=== PATIENT | male | born 1985 | race Caucasian/White ===

== ENCOUNTER 2021-02-24 02:13 | Inpatient (IN) | payer OTHER, MEDICAID, SELFPAY ==
[2021-02-24] VITALS (8 sets, daily range): BP systolic 94–123
[~2021-02-24] VITALS: Ht 165.1 cm; Wt 59.4 kg
[2021-02-24] MEDS ORDERED: PIPERACILLIN/TAZO 3.375 GM in NS 50 ML IV ONE (02:30)
[2021-02-24] MEDS ORDERED: NACL 0.9% 1,000 ML IV ONE ×2 (02:30→03:45)
[2021-02-24] MEDS ORDERED: PIPERACILLIN/TAZOBACTAM 3.375 GM/VIAL (ZOSYN) IV ONE (03:09)
[2021-02-24 03:21] LABS: BASOPHILS % (AUTO) 0.2 % (0.0-2.0); EOSINOPHILS # (AUTO) 0.1 K/uL (0.0-0.4); EOSINOPHILS % (AUTO) 1.8 % (0.0-4.0); HEMATOCRIT 42.1 % (36-54); HEMOGLOBIN 14.3 g/dL (14.0-18.0); LYMPHOCYTES # (AUTO) 2.5 K/uL (1.0-5.5); MEAN CORPUSCULAR HEMOGLOBIN 31 pg (27-31); MEAN CORPUSCULAR HGB CONC 34 % (32-36); MEAN CORPUSCULAR VOLUME 91 fL (79.0-98.0); MONOCYTES # (AUTO) 0.6 K/uL (0.0-1.0); MONOCYTES % (AUTO) 8.2 % (1.7-9.3); NEUTROPHILS % (AUTO) 55.8 % (40.0-70.0); PLATELET COUNT (AUTO) 268 K/uL (130-430); RED BLOOD CELL COUNT(AUTO) 4.62 MIL/uL (4.2-6.2); RED CELL DISTRIBUTION WIDTH 13.4 % (9.0-15.0); WHITE BLOOD COUNT (AUTO) 7.2 K/uL (4.8-10.8)
[2021-02-24] MEDS ORDERED: VANCOMYCIN HCL 1,000 MG in NS 250 ML IV ONE (03:30)
[2021-02-24] MEDS ORDERED: AZITHROMYCIN 500 MG in NS 250 ML IV ONE (03:30)
[2021-02-24] MEDS ORDERED: AZITHROMYCIN 500 MG/VIAL (ZITHROMAX) IV ONE (03:31)
[2021-02-24 03:41] LABS: INR 1.2 (0.80-1.20); PROTHROMBIN TIME 12.3 SECS (9.5-12.5)
[2021-02-24 03:42] LABS: POTASSIUM 3.9 mmol/L (3.5-5.1)
[2021-02-24 03:43] LABS: CALCIUM 8.4 mg/dL (8.4-11.0); CREATININE 0.32 mg/dL (0.55-1.30); TOTAL BILIRUBIN 0.3 mg/dL (0.0-1.0)
[2021-02-24 03:44] LABS: ALBUMIN 2.9 g/dL (3.4-4.8)
[2021-02-24] MEDS ORDERED: VANCOMYCIN HCL 1000 MG/VIAL IV ONE (04:01)
[2021-02-24 04:13] LABS: BILIRUBIN,URINE NEGATIVE (NEGATIVE); BLOOD, URINE NEGATIVE (NEGATIVE); COLOR,URINE YELLOW (YELLOW); GLUCOSE,URINE NEGATIVE (NEGATIVE); KETONES,URINE NEGATIVE (NEGATIVE); LEUKOCYTE ESTERASE ,URINE NEGATIVE (NEGATIVE); NITRITE, URINE NEGATIVE (NEGATIVE); PH,URINE 7.5 (5.0-8.0); PROTEIN URINE NEGATIVE (NEGATIVE); UROBILINOGEN,URINE 0.2 (0.2-1.0)
[2021-02-24] MEDS ORDERED: IPRATROPIUM/ALBUTEROL SULFATE 3 ML AMPUL.NEB (DUONEB) INH ONE (04:15)
[2021-02-24 04:19] LABS: CLARITY/URINE HAZY (CLEAR)
[2021-02-24 04:21] LABS: RBC,URINE 0-3 /HPF (0-3); WBC,URINE NONE SEEN /HPF (0-3)
[2021-02-24 04:22] LABS: BACTERIA,URINE None Seen /HPF (None Seen); URINE AMORPHOUS PHOSPHATES 2+ /HPF (None Seen)
[2021-02-24] MEDS ORDERED: D5/0.45 NS 1,000 ML IV SCH (05:15)
[2021-02-24] MEDS ORDERED: [UNRECOGNIZED DRUG - OTHER] TD (09:48)
[2021-02-24] MEDS ORDERED: FAMO20TA8 GT (09:48)
[2021-02-24] MEDS ORDERED: PEG15DRO5 EACH EYE (09:48)
[2021-02-24] MEDS ORDERED: DIASTAT ACDL RC (09:48)
[2021-02-24] MEDS ORDERED: DIGO250T GT (09:48)
[2021-02-24] MEDS ORDERED: CLORAZ DIPOT GT ×2 (09:48→14:06)
[2021-02-24] MEDS ORDERED: GLYCOPYRROL GT (09:48)
[2021-02-24] MEDS ORDERED: THERA-M GT (09:48)
[2021-02-24] MEDS ORDERED: IBUP-1968 GT (09:48)
[2021-02-24] MEDS ORDERED: PRED1TAB GT (09:48)
[2021-02-24] MEDS ORDERED: MI-ACID GAS GT (09:48)
[2021-02-24] MEDS ORDERED: DILT30TA36 PO (09:48)
[2021-02-24] MEDS ORDERED: GNP CLEARLAX GT (09:48)
[2021-02-24] MEDS ORDERED: LACT10SO6 GT (09:48)
[2021-02-24] MEDS ORDERED: BACL10TA GT (09:48)
[2021-02-24] MEDS ORDERED: BUDE0.5A INH (09:48)
[2021-02-24] MEDS ORDERED: CRAN450T9 GT (09:48)
[2021-02-24] MEDS ORDERED: IPRA3AMP9 INH (09:48)
[2021-02-24] MEDS ORDERED: PHEN20EL5 GT (09:48)
[2021-02-24] MEDS ORDERED: FIBER CAP GT (09:48)
[2021-02-24] MEDS ORDERED: TOPI200T GT (09:48)
[2021-02-24] MEDS ORDERED: BIOT1CAP3 GT (09:48)
[2021-02-24] MEDS ORDERED: LEVETIRACETA GT (09:48)
[2021-02-24] MEDS ORDERED: MONT10TA22 GT (09:48)
[2021-02-24] MEDS ORDERED: [UNRECOGNIZED DRUG - OTHER] RC (09:48)
[2021-02-24] MEDS ORDERED: POT CHLORIDE 10% GT (09:48)
[2021-02-24] MEDS ORDERED: [UNRECOGNIZED DRUG - OTHER] GT (09:48)
[2021-02-24] MEDS ORDERED: ZINC220T3 GT (09:48)
[2021-02-24] MEDS ORDERED: ASCO500T20 GT (09:48)
[2021-02-24] MEDS ORDERED: COLL100 GT (09:48)
[2021-02-24] MEDS ORDERED: VIT D3 GT (09:48)
[2021-02-24] MEDS ORDERED: LACT1CAP61 GT (09:48)
[2021-02-24] MEDS ORDERED: LORazepam 2 MG/ML VIAL IVP PRN ×2 (12:15→20:00)
[2021-02-24] MEDS ORDERED: HYDROcodone/ACETAMIN 5-325 MG TAB (NORCO/ VICODIN) GT PRN (12:15)
[2021-02-24] MEDS ORDERED: IBUPROFEN 400 MG TABLET GT PRN (12:15)
[2021-02-24] MEDS ORDERED: NALOXONE HCL 0.4 MG/ML AMP (NARCAN) IVP PRN ×2 (12:15)
[2021-02-24] MEDS ORDERED: ACETAMINOPHEN 650 MG RC SCH (12:15)
[2021-02-24] MEDS ORDERED: HYDROcodone/ACETAMIN 10-325 MG TAB GT PRN (12:15)
[2021-02-24] MEDS ORDERED: DIAZEPAM 10 MG RC SCH (12:15)
[2021-02-24] MEDS: D5/0.45 NS 1,000 ML IV SCH ×2 (12:15→20:24)
[2021-02-24] MEDS: PIPERACILLIN/TAZO 3.375/DEX-IS 50 ML IV SCH ×3 (12:38→23:59)
[2021-02-24] MEDS: PEG 400/HYPROMELLOSE/GLYCERIN 15 ML DROPS EACH EYE SCH ×3 (13:00→22:36)
[2021-02-24] MEDS ORDERED: COMMUNICATION ORDER XX ONE (14:15)
[2021-02-24] MEDS: LEVOFLOXACIN IN DEXTROSE 5 % 100 ML IV SCH (14:38)
[2021-02-24] MEDS: SIMETHICONE 80 MG TAB.CHEW GT SCH ×2 (14:42→22:35)
[2021-02-24] MEDS: CLORAZEPATE DIPOTASSIUM 3.75 MG GT SCH ×2 (15:12→20:06)
[2021-02-24] MEDS: GLYCOPYRROLATE 1 MG TABLET GT SCH ×2 (17:27→23:59)
[2021-02-24] MEDS: predniSONE 5 MG TABLET GT SCH (17:27)
[2021-02-24] MEDS: BUDESONIDE 0.5 MG/2 ML AMPUL.NEB INH SCH (20:36)
[2021-02-24] MEDS ORDERED: LACTOBACILLUS ACIDOPHILUS 0.5 MG GT SCH (21:00)
[2021-02-24] MEDS: LevETIRAcetam 500 MG/5 ML UDC ORAL LIQUID GT SCH (22:29)
[2021-02-24] MEDS: DOCUSATE SODIUM 100 MG/10 ML UDC GT SCH (22:31)
[2021-02-24] MEDS: TOPIRAMATE 100 MG TABLET(Topamax) GT SCH (22:33)
[2021-02-24] MEDS: LACTOBACILLUS RHAMNOSUS GG 1 CAP CAPSULE GT SCH (22:34)
[2021-02-24] MEDS: ASCORBIC ACID 500 MG TABLET GT SCH (22:34)
[2021-02-24] MEDS: DILTIAZEM HCL 30 MG TABLET PO SCH (22:34)
[2021-02-24] MEDS: MONTELUKAST 10 MG TABLET GT SCH (22:34)
[2021-02-24] MEDS: POLYETHYLENE GLYCOL 3350, 17 GM/ POWD.PACK GT SCH (22:35)
[2021-02-24] MEDS: PHENobarbital 30 MG TABLET GT SCH (22:35)
[2021-02-24] MEDS: FAMOTIDINE 20 MG TABLET GT SCH (22:35)
[2021-02-25 00:34] VITALS: BP_SYST 147
[2021-02-25] MEDS: CLORAZEPATE DIPOTASSIUM 3.75 MG GT SCH ×4 (02:33→23:05)
[2021-02-25] MEDS: GLYCOPYRROLATE 1 MG TABLET GT SCH ×3 (05:41→17:49)
[2021-02-25] MEDS: PIPERACILLIN/TAZO 3.375/DEX-IS 50 ML IV SCH ×3 (05:41→17:49)
[2021-02-25 06:57] LABS: BASOPHILS % (AUTO) 0.5 % (0.0-2.0); EOSINOPHILS # (AUTO) 0.2 K/uL (0.0-0.4); EOSINOPHILS % (AUTO) 3.3 % (0.0-4.0); HEMATOCRIT 39.4 % (36-54); HEMOGLOBIN 13.2 g/dL (14.0-18.0); LYMPHOCYTES # (AUTO) 0.9 K/uL (1.0-5.5); LYMPHOCYTES % (AUTO) 14.5 % (20.5-51.5); MEAN CORPUSCULAR HEMOGLOBIN 31 pg (27-31); MEAN CORPUSCULAR HGB CONC 34 % (32-36); MEAN CORPUSCULAR VOLUME 93 fL (79.0-98.0); MONOCYTES # (AUTO) 1.1 K/uL (0.0-1.0); MONOCYTES % (AUTO) 17.8 % (1.7-9.3); NEUTROPHILS % (AUTO) 63.9 % (40.0-70.0); PLATELET COUNT (AUTO) 192 K/uL (130-430); RED BLOOD CELL COUNT(AUTO) 4.24 MIL/uL (4.2-6.2); RED CELL DISTRIBUTION WIDTH 13.7 % (9.0-15.0); WHITE BLOOD COUNT (AUTO) 6.2 K/uL (4.8-10.8)
[2021-02-25 08:00] VITALS: BP_SYST 107
[2021-02-25] MEDS: BUDESONIDE 0.5 MG/2 ML AMPUL.NEB INH SCH ×2 (08:15→19:52)
[2021-02-25] MEDS: IPRATROPIUM/ALBUTEROL SULFATE 3 ML AMPUL.NEB (DUONEB) INH PRN (08:39)
[2021-02-25 08:42] LABS: ALBUMIN 2.4 g/dL (3.4-4.8); CALCIUM 7.8 mg/dL (8.4-11.0); CREATININE 0.31 mg/dL (0.55-1.30); TOTAL BILIRUBIN 0.4 mg/dL (0.0-1.0)
[2021-02-25] MEDS ORDERED: NON-FORMULARY MEDICATION (Cranberry Fruit (Cranberry) 425 MG) GT SCH (09:00)
[2021-02-25] MEDS ORDERED: NON-FORMULARY MEDICATION (Biotin 1,000 MCG) GT SCH (09:00)
[2021-02-25] MEDS ORDERED: FIBER GT SCH (09:00)
[2021-02-25 09:19] LABS: POTASSIUM 2.8 mmol/L (3.5-5.1)
[2021-02-25] MEDS: D5/0.45 NS 1,000 ML IV SCH (09:31)
[2021-02-25] MEDS: LACTULOSE 20 GM/30 ML UDC GT SCH (09:31)
[2021-02-25] MEDS: DOCUSATE SODIUM 100 MG/10 ML UDC GT SCH ×2 (09:32→23:03)
[2021-02-25] MEDS: CALCIUM CARBONATE 500 MG/ TAB.CHEW GT SCH (09:32)
[2021-02-25] MEDS: POTASSIUM CHLORIDE 20 MEQ/PKT PACKET GT SCH (09:33)
[2021-02-25] MEDS: SIMETHICONE 80 MG TAB.CHEW GT SCH ×3 (09:33→23:06)
[2021-02-25] MEDS: ASCORBIC ACID 500 MG TABLET GT SCH ×2 (09:33→23:06)
[2021-02-25] MEDS: LACTOBACILLUS RHAMNOSUS GG 1 CAP CAPSULE GT SCH ×2 (09:33→23:06)
[2021-02-25] MEDS: TOPIRAMATE 100 MG TABLET(Topamax) GT SCH ×2 (09:33→23:10)
[2021-02-25] MEDS: MULTIVITS,CA,MINERALS/IRON/FA 1 TABLET GT SCH (09:33)
[2021-02-25] MEDS: POLYETHYLENE GLYCOL 3350, 17 GM/ POWD.PACK GT SCH ×2 (09:34→23:04)
[2021-02-25] MEDS: PHENobarbital 30 MG TABLET GT SCH ×2 (09:34→23:04)
[2021-02-25] MEDS: DIGOXIN 0.25 MG TABLET GT SCH (09:34)
[2021-02-25] MEDS: CHOLECALCIFEROL (VITAMIN D3) 2,000 UNIT TABLET GT SCH (09:34)
[2021-02-25] MEDS: PEG 400/HYPROMELLOSE/GLYCERIN 15 ML DROPS EACH EYE SCH ×4 (09:54→23:08)
[2021-02-25] MEDS: SCOPOLAMINE HYDROBROMIDE 1 MG PATCH .72 H (TRANSDERM-SCOP) TD SCH (10:15)
[2021-02-25 10:16] LABS: C-REACTIVE PROTEIN QUANT 8.2 mg/dL (0-0.5)
[2021-02-25] MEDS: LevETIRAcetam 500 MG/5 ML UDC ORAL LIQUID GT SCH ×2 (10:16→23:03)
[2021-02-25 10:17] LABS: ERYTHROCYTE SEDIMENTATION RATE 5 MM/HR (0-15)
[2021-02-25 11:23] VITALS: BP_SYST 80
[2021-02-25] MEDS ORDERED: POTASSIUM CHLORIDE 40 MEQ in NS 250 ML IV ONE (13:15)
[2021-02-25] MEDS: LEVOFLOXACIN IN DEXTROSE 5 % 100 ML IV SCH (14:19)
[2021-02-25 15:21] VITALS: BP_SYST 131
[2021-02-25] MEDS: predniSONE 5 MG TABLET GT SCH (17:49)
[2021-02-25 20:00] VITALS: BP_SYST 142
[2021-02-25] MEDS: FAMOTIDINE 20 MG TABLET GT SCH (23:04)
[2021-02-25] MEDS: DILTIAZEM HCL 30 MG TABLET PO SCH (23:06)
[2021-02-25] MEDS: MONTELUKAST 10 MG TABLET GT SCH (23:07)
[2021-02-26] VITALS: BP_SYST 108
[2021-02-26] MEDS: CLORAZEPATE DIPOTASSIUM 3.75 MG GT SCH ×4 (01:17→22:49)
[2021-02-26] MEDS: GLYCOPYRROLATE 1 MG TABLET GT SCH ×4 (01:17→17:11)
[2021-02-26] MEDS: PIPERACILLIN/TAZO 3.375/DEX-IS 50 ML IV SCH ×3 (01:17→11:14)
[2021-02-26] MEDS: D5/0.45 NS 1,000 ML IV SCH ×2 (06:00→17:18)
[2021-02-26 06:44] LABS: BASOPHILS % (AUTO) 0.4 % (0.0-2.0); EOSINOPHILS # (AUTO) 0.3 K/uL (0.0-0.4); EOSINOPHILS % (AUTO) 4.6 % (0.0-4.0); HEMATOCRIT 40.6 % (36-54); LYMPHOCYTES # (AUTO) 1.2 K/uL (1.0-5.5); LYMPHOCYTES % (AUTO) 20.8 % (20.5-51.5); MEAN CORPUSCULAR HEMOGLOBIN 31 pg (27-31); MEAN CORPUSCULAR HGB CONC 34 % (32-36); MEAN CORPUSCULAR VOLUME 91 fL (79.0-98.0); MONOCYTES % (AUTO) 16.1 % (1.7-9.3); NEUTROPHILS # (AUTO) 3.5 K/uL (1.8-7.7); NEUTROPHILS % (AUTO) 58.1 % (40.0-70.0); PLATELET COUNT (AUTO) 236 K/uL (130-430); RED BLOOD CELL COUNT(AUTO) 4.47 MIL/uL (4.2-6.2); RED CELL DISTRIBUTION WIDTH 13.3 % (9.0-15.0)
[2021-02-26 07:44] LABS: CALCIUM 8.6 mg/dL (8.4-11.0); CREATININE 0.31 mg/dL (0.55-1.30); POTASSIUM 3.5 mmol/L (3.5-5.1)
[2021-02-26 07:52] VITALS: BP_SYST 92
[2021-02-26] MEDS: BUDESONIDE 0.5 MG/2 ML AMPUL.NEB INH SCH ×2 (08:02→20:56)
[2021-02-26] MEDS: POLYETHYLENE GLYCOL 3350, 17 GM/ POWD.PACK GT SCH ×2 (08:34→22:49)
[2021-02-26] MEDS: DOCUSATE SODIUM 100 MG/10 ML UDC GT SCH ×2 (08:34→22:48)
[2021-02-26] MEDS: SIMETHICONE 80 MG TAB.CHEW GT SCH ×3 (08:34→23:00)
[2021-02-26] MEDS: LACTULOSE 20 GM/30 ML UDC GT SCH (08:34)
[2021-02-26] MEDS: ASCORBIC ACID 500 MG TABLET GT SCH ×2 (08:35→22:51)
[2021-02-26] MEDS: DIGOXIN 0.25 MG TABLET GT SCH (08:35)
[2021-02-26] MEDS: LACTOBACILLUS RHAMNOSUS GG 1 CAP CAPSULE GT SCH ×2 (08:35→22:50)
[2021-02-26] MEDS: PHENobarbital 30 MG TABLET GT SCH ×2 (08:35→22:50)
[2021-02-26] MEDS: CALCIUM CARBONATE 500 MG/ TAB.CHEW GT SCH (08:35)
[2021-02-26] MEDS: LevETIRAcetam 500 MG/5 ML UDC ORAL LIQUID GT SCH ×2 (08:36→22:49)
[2021-02-26] MEDS: POTASSIUM CHLORIDE 20 MEQ/PKT PACKET GT SCH (08:36)
[2021-02-26] MEDS: MULTIVITS,CA,MINERALS/IRON/FA 1 TABLET GT SCH (08:36)
[2021-02-26] MEDS: CHOLECALCIFEROL (VITAMIN D3) 2,000 UNIT TABLET GT SCH (08:36)
[2021-02-26] MEDS: PEG 400/HYPROMELLOSE/GLYCERIN 15 ML DROPS EACH EYE SCH ×4 (08:37→23:00)
[2021-02-26] MEDS: TOPIRAMATE 100 MG TABLET(Topamax) GT SCH ×2 (08:43→22:51)
[2021-02-26 09:11] LABS: ERYTHROCYTE SEDIMENTATION RATE 6 MM/HR (0-15)
[2021-02-26 12:00] VITALS: BP_SYST 106
[2021-02-26] MEDS: LEVOFLOXACIN IN DEXTROSE 5 % 100 ML IV SCH (13:33)
[2021-02-26 16:00] VITALS: BP_SYST 116
[2021-02-26] MEDS: predniSONE 5 MG TABLET GT SCH (17:11)
[2021-02-26] MEDS ORDERED: MUPIROCIN 2% TOPICAL OINTMENT 22 GM NS SCH (21:00)
[2021-02-26] MEDS: DILTIAZEM HCL 30 MG TABLET PO SCH (21:00)
[2021-02-26] MEDS: MONTELUKAST 10 MG TABLET GT SCH (22:50)
[2021-02-26] MEDS: FAMOTIDINE 20 MG TABLET GT SCH (22:51)
[2021-02-27] MEDS: D5/0.45 NS 1,000 ML IV SCH ×2 (00:32→10:39)
[2021-02-27 01:53] VITALS: BP_SYST 133
[2021-02-27] MEDS: CLORAZEPATE DIPOTASSIUM 3.75 MG GT SCH ×4 (02:40→20:00)
[2021-02-27] MEDS: GLYCOPYRROLATE 1 MG TABLET GT SCH ×4 (05:44→16:58)
[2021-02-27] MEDS: BUDESONIDE 0.5 MG/2 ML AMPUL.NEB INH SCH ×2 (07:51→20:23)
[2021-02-27 08:00] VITALS: BP_SYST 100
[2021-02-27] MEDS: LACTULOSE 20 GM/30 ML UDC GT SCH (08:32)
[2021-02-27] MEDS: CALCIUM CARBONATE 500 MG/ TAB.CHEW GT SCH (08:33)
[2021-02-27] MEDS: PHENobarbital 30 MG TABLET GT SCH ×2 (08:33→21:15)
[2021-02-27] MEDS: MULTIVITS,CA,MINERALS/IRON/FA 1 TABLET GT SCH (08:33)
[2021-02-27] MEDS: CHOLECALCIFEROL (VITAMIN D3) 2,000 UNIT TABLET GT SCH (08:33)
[2021-02-27] MEDS: POTASSIUM CHLORIDE 20 MEQ/PKT PACKET GT SCH (08:33)
[2021-02-27] MEDS: TOPIRAMATE 100 MG TABLET(Topamax) GT SCH ×2 (08:33→21:13)
[2021-02-27] MEDS: LACTOBACILLUS RHAMNOSUS GG 1 CAP CAPSULE GT SCH ×2 (08:33→21:14)
[2021-02-27] MEDS: POLYETHYLENE GLYCOL 3350, 17 GM/ POWD.PACK GT SCH ×2 (08:33→21:18)
[2021-02-27] MEDS: ASCORBIC ACID 500 MG TABLET GT SCH ×2 (08:34→21:15)
[2021-02-27] MEDS: LevETIRAcetam 500 MG/5 ML UDC ORAL LIQUID GT SCH ×2 (08:34→21:20)
[2021-02-27] MEDS: DIGOXIN 0.25 MG TABLET GT SCH (08:34)
[2021-02-27] MEDS: SIMETHICONE 80 MG TAB.CHEW GT SCH ×3 (08:34→21:16)
[2021-02-27] MEDS: PEG 400/HYPROMELLOSE/GLYCERIN 15 ML DROPS EACH EYE SCH ×4 (08:35→22:03)
[2021-02-27] MEDS: DOCUSATE SODIUM 100 MG/10 ML UDC GT SCH ×2 (08:45→21:17)
[2021-02-27 09:10] VITALS: BP_SYST 133
[2021-02-27] MEDS: MUPIROCIN 2% TOPICAL OINTMENT 22 GM NS SCH ×2 (10:39→22:03)
[2021-02-27 11:23] VITALS: BP_SYST 104
[2021-02-27] MEDS: LEVOFLOXACIN IN DEXTROSE 5 % 100 ML IV SCH (13:40)
[2021-02-27 15:32] VITALS: BP_SYST 110
[2021-02-27] MEDS: predniSONE 5 MG TABLET GT SCH (16:58)
[2021-02-27 20:00] VITALS: BP_SYST 110
[2021-02-27] MEDS: FAMOTIDINE 20 MG TABLET GT SCH (21:12)
[2021-02-27] MEDS: DILTIAZEM HCL 30 MG TABLET PO SCH (21:14)
[2021-02-27] MEDS: MONTELUKAST 10 MG TABLET GT SCH (21:17)
[2021-02-28] VITALS: BP_SYST 113
[2021-02-28] MEDS: GLYCOPYRROLATE 1 MG TABLET GT SCH ×5 (00:17→23:51)
[2021-02-28] MEDS: D5/0.45 NS 1,000 ML IV SCH ×3 (00:27→14:45)
[2021-02-28] MEDS: CLORAZEPATE DIPOTASSIUM 3.75 MG GT SCH ×4 (02:00→20:40)
[2021-02-28 08:03] VITALS: BP_SYST 125
[2021-02-28] MEDS: BUDESONIDE 0.5 MG/2 ML AMPUL.NEB INH SCH ×2 (08:27→19:38)
[2021-02-28] MEDS: LACTOBACILLUS RHAMNOSUS GG 1 CAP CAPSULE GT SCH ×2 (09:26→20:41)
[2021-02-28] MEDS: ASCORBIC ACID 500 MG TABLET GT SCH ×2 (09:27→20:43)
[2021-02-28] MEDS: DIGOXIN 0.25 MG TABLET GT SCH (09:27)
[2021-02-28] MEDS: SIMETHICONE 80 MG TAB.CHEW GT SCH ×3 (09:27→20:42)
[2021-02-28] MEDS: CHOLECALCIFEROL (VITAMIN D3) 2,000 UNIT TABLET GT SCH (09:27)
[2021-02-28] MEDS: DOCUSATE SODIUM 100 MG/10 ML UDC GT SCH ×2 (09:28→20:41)
[2021-02-28] MEDS: CALCIUM CARBONATE 500 MG/ TAB.CHEW GT SCH (09:28)
[2021-02-28] MEDS: LACTULOSE 20 GM/30 ML UDC GT SCH (09:28)
[2021-02-28] MEDS: SCOPOLAMINE HYDROBROMIDE 1 MG PATCH .72 H (TRANSDERM-SCOP) TD SCH (09:29)
[2021-02-28] MEDS: MULTIVITS,CA,MINERALS/IRON/FA 1 TABLET GT SCH (09:29)
[2021-02-28] MEDS: POTASSIUM CHLORIDE 20 MEQ/PKT PACKET GT SCH (09:29)
[2021-02-28] MEDS: TOPIRAMATE 100 MG TABLET(Topamax) GT SCH ×2 (09:29→20:43)
[2021-02-28] MEDS: PHENobarbital 30 MG TABLET GT SCH ×2 (09:30→20:42)
[2021-02-28] MEDS: POLYETHYLENE GLYCOL 3350, 17 GM/ POWD.PACK GT SCH ×2 (09:30→20:42)
[2021-02-28] MEDS: PEG 400/HYPROMELLOSE/GLYCERIN 15 ML DROPS EACH EYE SCH ×4 (09:31→20:40)
[2021-02-28] MEDS: MUPIROCIN 2% TOPICAL OINTMENT 22 GM NS SCH ×2 (09:31→20:43)
[2021-02-28] MEDS: LevETIRAcetam 500 MG/5 ML UDC ORAL LIQUID GT SCH ×2 (09:31→20:42)
[2021-02-28 11:22] VITALS: BP_SYST 129
[2021-02-28] MEDS: LEVOFLOXACIN IN DEXTROSE 5 % 100 ML IV SCH (14:48)
[2021-02-28 15:32] VITALS: BP_SYST 137
[2021-02-28] MEDS: predniSONE 5 MG TABLET GT SCH (17:39)
[2021-02-28 20:00] VITALS: BP_SYST 125
[2021-02-28] MEDS: FAMOTIDINE 20 MG TABLET GT SCH (20:42)
[2021-02-28] MEDS: MONTELUKAST 10 MG TABLET GT SCH (20:43)
[2021-02-28] MEDS: DILTIAZEM HCL 30 MG TABLET PO SCH (20:44)
[2021-03-01 00:35] VITALS: BP_SYST 128
[2021-03-01] MEDS: D5/0.45 NS 1,000 ML IV SCH ×3 (01:12→22:18)
[2021-03-01] MEDS: CLORAZEPATE DIPOTASSIUM 3.75 MG GT SCH ×4 (01:13→22:21)
[2021-03-01] MEDS: GLYCOPYRROLATE 1 MG TABLET GT SCH ×3 (05:36→17:43)
[2021-03-01 07:41] LABS: BASOPHILS % (AUTO) 0.2 % (0.0-2.0); EOSINOPHILS # (AUTO) 0.1 K/uL (0.0-0.4); EOSINOPHILS % (AUTO) 1.2 % (0.0-4.0); HEMATOCRIT 43.7 % (36-54); HEMOGLOBIN 15.2 g/dL (14.0-18.0); LYMPHOCYTES # (AUTO) 2.3 K/uL (1.0-5.5); LYMPHOCYTES % (AUTO) 20.5 % (20.5-51.5); MEAN CORPUSCULAR HEMOGLOBIN 31 pg (27-31); MEAN CORPUSCULAR HGB CONC 35 % (32-36); MEAN CORPUSCULAR VOLUME 89 fL (79.0-98.0); MONOCYTES # (AUTO) 1.6 K/uL (0.0-1.0); MONOCYTES % (AUTO) 14.8 % (1.7-9.3); NEUTROPHILS % (AUTO) 63.3 % (40.0-70.0); PLATELET COUNT (AUTO) 256 K/uL (130-430); RED BLOOD CELL COUNT(AUTO) 4.92 MIL/uL (4.2-6.2); RED CELL DISTRIBUTION WIDTH 13.2 % (9.0-15.0); WHITE BLOOD COUNT (AUTO) 11.1 K/uL (4.8-10.8)
[2021-03-01] MEDS: BUDESONIDE 0.5 MG/2 ML AMPUL.NEB INH SCH ×2 (07:48→20:54)
[2021-03-01 08:04] LABS: CALCIUM 8.4 mg/dL (8.4-11.0); CREATININE 0.35 mg/dL (0.55-1.30)
[2021-03-01 08:42] VITALS: BP_SYST 139
[2021-03-01 08:56] LABS: POTASSIUM 2.3 mmol/L (3.5-5.1)
[2021-03-01] MEDS: MULTIVITS,CA,MINERALS/IRON/FA 1 TABLET GT SCH (09:03)
[2021-03-01] MEDS: PHENobarbital 30 MG TABLET GT SCH ×2 (09:03→22:15)
[2021-03-01] MEDS: POLYETHYLENE GLYCOL 3350, 17 GM/ POWD.PACK GT SCH ×2 (09:03→22:14)
[2021-03-01] MEDS: TOPIRAMATE 100 MG TABLET(Topamax) GT SCH ×2 (09:03→22:14)
[2021-03-01] MEDS: ASCORBIC ACID 500 MG TABLET GT SCH ×2 (09:04→22:15)
[2021-03-01] MEDS: LevETIRAcetam 500 MG/5 ML UDC ORAL LIQUID GT SCH ×2 (09:04→22:22)
[2021-03-01] MEDS: CHOLECALCIFEROL (VITAMIN D3) 2,000 UNIT TABLET GT SCH (09:04)
[2021-03-01] MEDS: POTASSIUM CHLORIDE 20 MEQ/PKT PACKET GT SCH (09:04)
[2021-03-01] MEDS: LACTOBACILLUS RHAMNOSUS GG 1 CAP CAPSULE GT SCH ×2 (09:05→22:14)
[2021-03-01] MEDS: DIGOXIN 0.25 MG TABLET GT SCH (09:05)
[2021-03-01] MEDS: CALCIUM CARBONATE 500 MG/ TAB.CHEW GT SCH (09:05)
[2021-03-01] MEDS: LACTULOSE 20 GM/30 ML UDC GT SCH (09:05)
[2021-03-01] MEDS: PEG 400/HYPROMELLOSE/GLYCERIN 15 ML DROPS EACH EYE SCH ×4 (09:06→22:28)
[2021-03-01] MEDS: SIMETHICONE 80 MG TAB.CHEW GT SCH ×3 (09:07→22:15)
[2021-03-01] MEDS: MUPIROCIN 2% TOPICAL OINTMENT 22 GM NS SCH ×2 (09:08→22:21)
[2021-03-01] MEDS: DOCUSATE SODIUM 100 MG/10 ML UDC GT SCH ×2 (09:12→22:14)
[2021-03-01] MEDS ORDERED: POTASSIUM CHLORIDE 60 MEQ in NS 500 ML IV ONE (11:00)
[2021-03-01 11:22] VITALS: BP_SYST 150
[2021-03-01] MEDS: LEVOFLOXACIN IN DEXTROSE 5 % 100 ML IV SCH (13:56)
[2021-03-01 15:43] VITALS: BP_SYST 141
[2021-03-01 17:00] VITALS: BP_SYST 138
[2021-03-01] MEDS: predniSONE 5 MG TABLET GT SCH (17:43)
[2021-03-01 18:30] LABS: CALCIUM 8.5 mg/dL (8.4-11.0); CREATININE 0.33 mg/dL (0.55-1.30)
[2021-03-01 18:33] LABS: POTASSIUM 3.9 mmol/L (3.5-5.1)
[2021-03-01 19:30] VITALS: BP_SYST 138
[2021-03-01] MEDS: MONTELUKAST 10 MG TABLET GT SCH (22:14)
[2021-03-01] MEDS: FAMOTIDINE 20 MG TABLET GT SCH (22:14)
[2021-03-01] MEDS: DILTIAZEM HCL 30 MG TABLET PO SCH (22:31)
[2021-03-02 01:04] VITALS: BP_SYST 126
[2021-03-02] MEDS: CLORAZEPATE DIPOTASSIUM 3.75 MG GT SCH ×4 (01:39→20:46)
[2021-03-02] MEDS: GLYCOPYRROLATE 1 MG TABLET GT SCH ×4 (01:39→17:46)
[2021-03-02] MEDS: D5/0.45 NS 1,000 ML IV SCH ×2 (08:15→17:47)
[2021-03-02] MEDS: BUDESONIDE 0.5 MG/2 ML AMPUL.NEB INH SCH (08:23)
[2021-03-02] MEDS: PEG 400/HYPROMELLOSE/GLYCERIN 15 ML DROPS EACH EYE SCH ×4 (09:00→21:22)
[2021-03-02] MEDS: TOPIRAMATE 100 MG TABLET(Topamax) GT SCH ×2 (09:00→20:48)
[2021-03-02] MEDS: LevETIRAcetam 500 MG/5 ML UDC ORAL LIQUID GT SCH ×2 (09:00→20:45)
[2021-03-02] MEDS: DOCUSATE SODIUM 100 MG/10 ML UDC GT SCH ×2 (09:00→20:44)
[2021-03-02] MEDS: DIGOXIN 0.25 MG TABLET GT SCH (09:00)
[2021-03-02] MEDS: ASCORBIC ACID 500 MG TABLET GT SCH ×2 (09:00→20:47)
[2021-03-02] MEDS: PHENobarbital 30 MG TABLET GT SCH ×2 (09:00→20:47)
[2021-03-02] MEDS: POLYETHYLENE GLYCOL 3350, 17 GM/ POWD.PACK GT SCH ×2 (09:00→20:44)
[2021-03-02] MEDS: SIMETHICONE 80 MG TAB.CHEW GT SCH ×3 (09:00→20:47)
[2021-03-02] MEDS: CALCIUM CARBONATE 500 MG/ TAB.CHEW GT SCH (09:00)
[2021-03-02] MEDS: LACTOBACILLUS RHAMNOSUS GG 1 CAP CAPSULE GT SCH ×2 (09:00→20:45)
[2021-03-02] MEDS: LACTULOSE 20 GM/30 ML UDC GT SCH (09:00)
[2021-03-02] MEDS: CHOLECALCIFEROL (VITAMIN D3) 2,000 UNIT TABLET GT SCH (09:00)
[2021-03-02] MEDS: POTASSIUM CHLORIDE 20 MEQ/PKT PACKET GT SCH (09:00)
[2021-03-02] MEDS: MUPIROCIN 2% TOPICAL OINTMENT 22 GM NS SCH ×2 (09:00→20:48)
[2021-03-02] MEDS: MULTIVITS,CA,MINERALS/IRON/FA 1 TABLET GT SCH (09:00)
[2021-03-02] MEDS: BACLOFEN 10 MG TABLET GT PRN (11:10)
[2021-03-02] MEDS: LEVOFLOXACIN IN DEXTROSE 5 % 100 ML IV SCH (14:00)
[2021-03-02 16:38] VITALS: BP_SYST 116
[2021-03-02] MEDS: predniSONE 5 MG TABLET GT SCH (17:09)
[2021-03-02 20:00] VITALS: BP_SYST 133
[2021-03-02] MEDS: DILTIAZEM HCL 30 MG TABLET PO SCH (20:47)
[2021-03-02] MEDS: MONTELUKAST 10 MG TABLET GT SCH (20:47)
[2021-03-02] MEDS: FAMOTIDINE 20 MG TABLET GT SCH (20:47)
[2021-03-03 00:45] VITALS: BP_SYST 144
[2021-03-03] MEDS: GLYCOPYRROLATE 1 MG TABLET GT SCH ×4 (00:51→17:37)
[2021-03-03] MEDS: D5/0.45 NS 1,000 ML IV SCH ×2 (02:29→14:55)
[2021-03-03] MEDS: CLORAZEPATE DIPOTASSIUM 3.75 MG GT SCH ×4 (02:30→20:00)
[2021-03-03 07:38] LABS: BASOPHILS % (AUTO) 0.2 % (0.0-2.0); EOSINOPHILS # (AUTO) 0.3 K/uL (0.0-0.4); EOSINOPHILS % (AUTO) 2.3 % (0.0-4.0); HEMATOCRIT 38.8 % (36-54); HEMOGLOBIN 13.4 g/dL (14.0-18.0); LYMPHOCYTES # (AUTO) 3.1 K/uL (1.0-5.5); LYMPHOCYTES % (AUTO) 23.4 % (20.5-51.5); MEAN CORPUSCULAR HEMOGLOBIN 31 pg (27-31); MEAN CORPUSCULAR HGB CONC 35 % (32-36); MEAN CORPUSCULAR VOLUME 90 fL (79.0-98.0); MONOCYTES # (AUTO) 1.6 K/uL (0.0-1.0); MONOCYTES % (AUTO) 12.2 % (1.7-9.3); NEUTROPHILS # (AUTO) 8.2 K/uL (1.8-7.7); NEUTROPHILS % (AUTO) 61.9 % (40.0-70.0); PLATELET COUNT (AUTO) 281 K/uL (130-430); RED BLOOD CELL COUNT(AUTO) 4.33 MIL/uL (4.2-6.2); RED CELL DISTRIBUTION WIDTH 13.3 % (9.0-15.0); WHITE BLOOD COUNT (AUTO) 13.2 K/uL (4.8-10.8)
[2021-03-03 08:00] VITALS: BP_SYST 142
[2021-03-03] MEDS: BUDESONIDE 0.5 MG/2 ML AMPUL.NEB INH SCH (08:00)
[2021-03-03] MEDS: CHOLECALCIFEROL (VITAMIN D3) 2,000 UNIT TABLET GT SCH (08:48)
[2021-03-03] MEDS: DOCUSATE SODIUM 100 MG/10 ML UDC GT SCH ×2 (08:48→21:08)
[2021-03-03] MEDS: POTASSIUM CHLORIDE 20 MEQ/PKT PACKET GT SCH (08:48)
[2021-03-03] MEDS: MULTIVITS,CA,MINERALS/IRON/FA 1 TABLET GT SCH (08:49)
[2021-03-03] MEDS: CALCIUM CARBONATE 500 MG/ TAB.CHEW GT SCH (08:49)
[2021-03-03] MEDS: PHENobarbital 30 MG TABLET GT SCH ×2 (08:49→21:10)
[2021-03-03] MEDS: LACTOBACILLUS RHAMNOSUS GG 1 CAP CAPSULE GT SCH ×2 (08:49→21:47)
[2021-03-03] MEDS: LACTULOSE 20 GM/30 ML UDC GT SCH (08:49)
[2021-03-03] MEDS: SCOPOLAMINE HYDROBROMIDE 1 MG PATCH .72 H (TRANSDERM-SCOP) TD SCH (08:50)
[2021-03-03] MEDS: SIMETHICONE 80 MG TAB.CHEW GT SCH ×3 (08:50→21:10)
[2021-03-03] MEDS: POLYETHYLENE GLYCOL 3350, 17 GM/ POWD.PACK GT SCH ×2 (08:50→21:00)
[2021-03-03] MEDS: MUPIROCIN 2% TOPICAL OINTMENT 22 GM NS SCH ×2 (08:51→21:13)
[2021-03-03] MEDS: DIGOXIN 0.25 MG TABLET GT SCH (08:51)
[2021-03-03] MEDS: PEG 400/HYPROMELLOSE/GLYCERIN 15 ML DROPS EACH EYE SCH ×4 (08:51→21:08)
[2021-03-03] MEDS: ASCORBIC ACID 500 MG TABLET GT SCH ×2 (08:52→21:11)
[2021-03-03] MEDS: LevETIRAcetam 500 MG/5 ML UDC ORAL LIQUID GT SCH ×2 (08:52→21:09)
[2021-03-03] MEDS: TOPIRAMATE 100 MG TABLET(Topamax) GT SCH ×2 (08:58→21:10)
[2021-03-03 08:59] LABS: CALCIUM 7.9 mg/dL (8.4-11.0); CREATININE 0.29 mg/dL (0.55-1.30)
[2021-03-03 09:20] LABS: POTASSIUM 2.5 mmol/L (3.5-5.1)
[2021-03-03 09:51] LABS: ERYTHROCYTE SEDIMENTATION RATE 11 MM/HR (0-15)
[2021-03-03] MEDS ORDERED: POTASSIUM CHLORIDE 40 MEQ in D5W 250 ML IV ONE (11:00)
[2021-03-03 11:27] LABS: C-REACTIVE PROTEIN QUANT 10.2 mg/dL (0-0.5)
[2021-03-03 12:00] VITALS: BP_SYST 135
[2021-03-03] MEDS: LEVOFLOXACIN IN DEXTROSE 5 % 100 ML IV SCH (14:54)
[2021-03-03 16:00] VITALS: BP_SYST 136
[2021-03-03] MEDS: predniSONE 5 MG TABLET GT SCH (17:37)
[2021-03-03 20:16] VITALS: BP_SYST 134
[2021-03-03] MEDS: MONTELUKAST 10 MG TABLET GT SCH (21:10)
[2021-03-03] MEDS: FAMOTIDINE 20 MG TABLET GT SCH (21:10)
[2021-03-03] MEDS: DILTIAZEM HCL 30 MG TABLET PO SCH (21:11)
[2021-03-04] MEDS: GLYCOPYRROLATE 1 MG TABLET GT SCH ×5 (00:22→23:04)
[2021-03-04 00:35] VITALS: BP_SYST 146
[2021-03-04] MEDS: CLORAZEPATE DIPOTASSIUM 3.75 MG GT SCH ×4 (02:00→21:15)
[2021-03-04] MEDS: D5/0.45 NS 1,000 ML IV SCH ×3 (02:32→21:12)
[2021-03-04 07:02] LABS: BASOPHILS # (AUTO) 0.1 K/uL (0.0-0.2); BASOPHILS % (AUTO) 0.5 % (0.0-2.0); EOSINOPHILS # (AUTO) 0.8 K/uL (0.0-0.4); EOSINOPHILS % (AUTO) 6.7 % (0.0-4.0); HEMATOCRIT 40.2 % (36-54); LYMPHOCYTES # (AUTO) 3.8 K/uL (1.0-5.5); LYMPHOCYTES % (AUTO) 33.4 % (20.5-51.5); MEAN CORPUSCULAR HEMOGLOBIN 32 pg (27-31); MEAN CORPUSCULAR HGB CONC 35 % (32-36); MEAN CORPUSCULAR VOLUME 91 fL (79.0-98.0); MONOCYTES # (AUTO) 1.2 K/uL (0.0-1.0); MONOCYTES % (AUTO) 10.7 % (1.7-9.3); NEUTROPHILS # (AUTO) 5.5 K/uL (1.8-7.7); NEUTROPHILS % (AUTO) 48.7 % (40.0-70.0); PLATELET COUNT (AUTO) 297 K/uL (130-430); RED BLOOD CELL COUNT(AUTO) 4.43 MIL/uL (4.2-6.2); RED CELL DISTRIBUTION WIDTH 13.2 % (9.0-15.0); WHITE BLOOD COUNT (AUTO) 11.4 K/uL (4.8-10.8)
[2021-03-04] MEDS: BUDESONIDE 0.5 MG/2 ML AMPUL.NEB INH SCH (07:32)
[2021-03-04 08:00] VITALS: BP_SYST 141
[2021-03-04 08:14] LABS: ALBUMIN 2.6 g/dL (3.4-4.8); CALCIUM 8.5 mg/dL (8.4-11.0); CREATININE 0.27 mg/dL (0.55-1.30); PHOSPHORUS 3.9 mg/dL (2.7-4.5); POTASSIUM 3.2 mmol/L (3.5-5.1); TOTAL BILIRUBIN 0.3 mg/dL (0.0-1.0)
[2021-03-04] MEDS: PEG 400/HYPROMELLOSE/GLYCERIN 15 ML DROPS EACH EYE SCH ×4 (08:25→21:16)
[2021-03-04] MEDS: MULTIVITS,CA,MINERALS/IRON/FA 1 TABLET GT SCH (08:26)
[2021-03-04] MEDS: CALCIUM CARBONATE 500 MG/ TAB.CHEW GT SCH (08:26)
[2021-03-04] MEDS: DOCUSATE SODIUM 100 MG/10 ML UDC GT SCH ×2 (08:26→21:13)
[2021-03-04] MEDS: MUPIROCIN 2% TOPICAL OINTMENT 22 GM NS SCH ×2 (08:26→21:16)
[2021-03-04] MEDS: LACTOBACILLUS RHAMNOSUS GG 1 CAP CAPSULE GT SCH ×2 (08:27→21:13)
[2021-03-04] MEDS: CHOLECALCIFEROL (VITAMIN D3) 2,000 UNIT TABLET GT SCH (08:27)
[2021-03-04] MEDS: DIGOXIN 0.25 MG TABLET GT SCH (08:27)
[2021-03-04] MEDS: TOPIRAMATE 100 MG TABLET(Topamax) GT SCH ×2 (08:27→21:14)
[2021-03-04] MEDS: ASCORBIC ACID 500 MG TABLET GT SCH ×2 (08:27→21:13)
[2021-03-04] MEDS: PHENobarbital 30 MG TABLET GT SCH ×2 (08:27→21:14)
[2021-03-04] MEDS: LACTULOSE 20 GM/30 ML UDC GT SCH (08:27)
[2021-03-04] MEDS: SIMETHICONE 80 MG TAB.CHEW GT SCH ×3 (08:28→21:14)
[2021-03-04] MEDS: LevETIRAcetam 500 MG/5 ML UDC ORAL LIQUID GT SCH ×2 (08:28→21:15)
[2021-03-04] MEDS: POTASSIUM CHLORIDE 20 MEQ/PKT PACKET GT SCH (08:28)
[2021-03-04] MEDS: POLYETHYLENE GLYCOL 3350, 17 GM/ POWD.PACK GT SCH ×2 (08:45→21:12)
[2021-03-04 10:29] LABS: C-REACTIVE PROTEIN QUANT 7.4 mg/dL (0-0.5)
[2021-03-04 11:30] LABS: ERYTHROCYTE SEDIMENTATION RATE 8 MM/HR (0-15)
[2021-03-04 12:00] VITALS: BP_SYST 142
[2021-03-04] MEDS: LEVOFLOXACIN IN DEXTROSE 5 % 100 ML IV SCH (14:13)
[2021-03-04 16:42] VITALS: BP_SYST 140
[2021-03-04] MEDS: predniSONE 5 MG TABLET GT SCH (17:13)
[2021-03-04 20:00] VITALS: BP_SYST 144
[2021-03-04] MEDS: MONTELUKAST 10 MG TABLET GT SCH (21:13)
[2021-03-04] MEDS: DILTIAZEM HCL 30 MG TABLET PO SCH (21:13)
[2021-03-04] MEDS: FAMOTIDINE 20 MG TABLET GT SCH (21:14)
[2021-03-05 01:14] VITALS: BP_SYST 155
[2021-03-05] MEDS: CLORAZEPATE DIPOTASSIUM 3.75 MG GT SCH ×4 (02:10→21:28)
[2021-03-05] MEDS: GLYCOPYRROLATE 1 MG TABLET GT SCH ×3 (06:24→17:35)
[2021-03-05] MEDS: D5/0.45 NS 1,000 ML IV SCH ×2 (06:24→16:32)
[2021-03-05] MEDS: BUDESONIDE 0.5 MG/2 ML AMPUL.NEB INH SCH ×2 (07:29→19:58)
[2021-03-05 07:54] VITALS: BP_SYST 136
[2021-03-05] MEDS: POLYETHYLENE GLYCOL 3350, 17 GM/ POWD.PACK GT SCH ×2 (08:23→21:27)
[2021-03-05] MEDS: MULTIVITS,CA,MINERALS/IRON/FA 1 TABLET GT SCH (08:24)
[2021-03-05] MEDS: CALCIUM CARBONATE 500 MG/ TAB.CHEW GT SCH (08:24)
[2021-03-05] MEDS: LACTOBACILLUS RHAMNOSUS GG 1 CAP CAPSULE GT SCH ×2 (08:24→21:33)
[2021-03-05] MEDS: POTASSIUM CHLORIDE 20 MEQ/PKT PACKET GT SCH (08:24)
[2021-03-05] MEDS: LACTULOSE 20 GM/30 ML UDC GT SCH (08:24)
[2021-03-05] MEDS: DOCUSATE SODIUM 100 MG/10 ML UDC GT SCH ×2 (08:24→21:27)
[2021-03-05] MEDS: ASCORBIC ACID 500 MG TABLET GT SCH ×2 (08:24→21:33)
[2021-03-05] MEDS: CHOLECALCIFEROL (VITAMIN D3) 2,000 UNIT TABLET GT SCH (08:25)
[2021-03-05] MEDS: SIMETHICONE 80 MG TAB.CHEW GT SCH ×3 (08:25→21:33)
[2021-03-05] MEDS: PHENobarbital 30 MG TABLET GT SCH ×2 (08:25→21:34)
[2021-03-05] MEDS: DIGOXIN 0.25 MG TABLET GT SCH (08:25)
[2021-03-05] MEDS: PEG 400/HYPROMELLOSE/GLYCERIN 15 ML DROPS EACH EYE SCH ×4 (08:26→21:32)
[2021-03-05] MEDS: MUPIROCIN 2% TOPICAL OINTMENT 22 GM NS SCH ×2 (08:26→21:34)
[2021-03-05] MEDS: TOPIRAMATE 100 MG TABLET(Topamax) GT SCH ×2 (08:26→21:33)
[2021-03-05] MEDS: LevETIRAcetam 500 MG/5 ML UDC ORAL LIQUID GT SCH ×2 (08:30→21:37)
[2021-03-05 12:00] VITALS: BP_SYST 142
[2021-03-05 12:10] VITALS: BP_SYST 142
[2021-03-05 15:33] VITALS: BP_SYST 125
[2021-03-05] MEDS: LEVOFLOXACIN IN DEXTROSE 5 % 100 ML IV SCH (15:52)
[2021-03-05] MEDS: predniSONE 5 MG TABLET GT SCH (17:35)
[2021-03-05 20:00] VITALS: BP_SYST 140
[2021-03-05] MEDS: MONTELUKAST 10 MG TABLET GT SCH (21:32)
[2021-03-05] MEDS: FAMOTIDINE 20 MG TABLET GT SCH (21:33)
[2021-03-05] MEDS: DILTIAZEM HCL 30 MG TABLET PO SCH (21:33)
[2021-03-06 00:07] VITALS: BP_SYST 96
[2021-03-06] MEDS: GLYCOPYRROLATE 1 MG TABLET GT SCH ×4 (00:45→18:15)
[2021-03-06] MEDS: IPRATROPIUM/ALBUTEROL SULFATE 3 ML AMPUL.NEB (DUONEB) INH PRN (01:41)
[2021-03-06] MEDS: CLORAZEPATE DIPOTASSIUM 3.75 MG GT SCH ×2 (01:45→09:09)
[2021-03-06] MEDS: D5/0.45 NS 1,000 ML IV SCH ×2 (01:46→12:43)
[2021-03-06] MEDS: BUDESONIDE 0.5 MG/2 ML AMPUL.NEB INH SCH ×2 (06:59→19:48)
[2021-03-06 08:00] VITALS: BP_SYST 113
[2021-03-06] MEDS: DOCUSATE SODIUM 100 MG/10 ML UDC GT SCH ×2 (09:04→21:01)
[2021-03-06] MEDS: MULTIVITS,CA,MINERALS/IRON/FA 1 TABLET GT SCH (09:04)
[2021-03-06] MEDS: ASCORBIC ACID 500 MG TABLET GT SCH ×2 (09:04→21:03)
[2021-03-06] MEDS: LACTULOSE 20 GM/30 ML UDC GT SCH (09:04)
[2021-03-06] MEDS: DIGOXIN 0.25 MG TABLET GT SCH (09:09)
[2021-03-06] MEDS: SIMETHICONE 80 MG TAB.CHEW GT SCH ×3 (09:09→21:04)
[2021-03-06] MEDS: LACTOBACILLUS RHAMNOSUS GG 1 CAP CAPSULE GT SCH ×2 (09:09→21:04)
[2021-03-06] MEDS: POLYETHYLENE GLYCOL 3350, 17 GM/ POWD.PACK GT SCH ×2 (09:09→21:01)
[2021-03-06] MEDS: CHOLECALCIFEROL (VITAMIN D3) 2,000 UNIT TABLET GT SCH (09:09)
[2021-03-06] MEDS: TOPIRAMATE 100 MG TABLET(Topamax) GT SCH ×2 (09:09→21:03)
[2021-03-06] MEDS: SCOPOLAMINE HYDROBROMIDE 1 MG PATCH .72 H (TRANSDERM-SCOP) TD SCH (09:10)
[2021-03-06] MEDS: CALCIUM CARBONATE 500 MG/ TAB.CHEW GT SCH (09:10)
[2021-03-06] MEDS: POTASSIUM CHLORIDE 20 MEQ/PKT PACKET GT SCH (09:10)
[2021-03-06] MEDS: PHENobarbital 30 MG TABLET GT SCH (09:10)
[2021-03-06] MEDS: LevETIRAcetam 500 MG/5 ML UDC ORAL LIQUID GT SCH ×2 (09:11→21:02)
[2021-03-06] MEDS: MUPIROCIN 2% TOPICAL OINTMENT 22 GM NS SCH ×2 (09:12→21:02)
[2021-03-06] MEDS: PEG 400/HYPROMELLOSE/GLYCERIN 15 ML DROPS EACH EYE SCH ×4 (09:12→21:00)
[2021-03-06 10:50] LABS: BASOPHILS % (AUTO) 0.2 % (0.0-2.0); EOSINOPHILS # (AUTO) 0.5 K/uL (0.0-0.4); EOSINOPHILS % (AUTO) 3.6 % (0.0-4.0); HEMATOCRIT 41.9 % (36-54); HEMOGLOBIN 14.3 g/dL (14.0-18.0); LYMPHOCYTES # (AUTO) 2.6 K/uL (1.0-5.5); LYMPHOCYTES % (AUTO) 17.2 % (20.5-51.5); MEAN CORPUSCULAR HEMOGLOBIN 31 pg (27-31); MEAN CORPUSCULAR HGB CONC 34 % (32-36); MEAN CORPUSCULAR VOLUME 91 fL (79.0-98.0); MONOCYTES # (AUTO) 1.6 K/uL (0.0-1.0); NEUTROPHILS # (AUTO) 10.1 K/uL (1.8-7.7); PLATELET COUNT (AUTO) 379 K/uL (130-430); RED BLOOD CELL COUNT(AUTO) 4.63 MIL/uL (4.2-6.2); RED CELL DISTRIBUTION WIDTH 13.1 % (9.0-15.0); WHITE BLOOD COUNT (AUTO) 14.9 K/uL (4.8-10.8)
[2021-03-06 11:15] LABS: CALCIUM 8.8 mg/dL (8.4-11.0); CREATININE 0.41 mg/dL (0.55-1.30); POTASSIUM 3.9 mmol/L (3.5-5.1)
[2021-03-06 11:27] LABS: ALBUMIN 3.1 g/dL (3.4-4.8); TOTAL BILIRUBIN 0.4 mg/dL (0.0-1.0)
[2021-03-06 12:00] VITALS: BP_SYST 122
[2021-03-06] MEDS: LEVOFLOXACIN IN DEXTROSE 5 % 100 ML IV SCH (14:05)
[2021-03-06 16:00] VITALS: BP_SYST 115
[2021-03-06] MEDS: predniSONE 5 MG TABLET GT SCH (16:25)
[2021-03-06] MEDS: ACETAMINOPHEN 325 MG TABLET GT PRN (16:25)
[2021-03-06 16:51] VITALS: BP_SYST 128
[2021-03-06 20:00] VITALS: BP_SYST 115
[2021-03-06] MEDS: DILTIAZEM HCL 30 MG TABLET PO SCH (21:03)
[2021-03-06] MEDS: FAMOTIDINE 20 MG TABLET GT SCH (21:03)
[2021-03-06] MEDS: MONTELUKAST 10 MG TABLET GT SCH (21:04)
[2021-03-06] MEDS: PHENobarbital 30 MG TABLET PO SCH (22:27)
[2021-03-06] MEDS ORDERED: CLORAZEPATE DIPOTASSIUM 3.75 MG GT SCH (23:45)
[2021-03-07] MEDS: ACETAMINOPHEN 325 MG TABLET GT PRN (00:36)
[2021-03-07 01:36] VITALS: BP_SYST 142
[2021-03-07] MEDS: CLORAZEPATE DIPOTASSIUM 3.75 MG GT SCH ×4 (02:51→20:00)
[2021-03-07] MEDS: D5/0.45 NS 1,000 ML IV SCH (02:55)
[2021-03-07] MEDS: GLYCOPYRROLATE 1 MG TABLET GT SCH ×5 (06:15→23:38)
[2021-03-07 06:56] LABS: BASOPHILS % (AUTO) 0.2 % (0.0-2.0); EOSINOPHILS # (AUTO) 0.3 K/uL (0.0-0.4); EOSINOPHILS % (AUTO) 2.5 % (0.0-4.0); HEMATOCRIT 36.7 % (36-54); HEMOGLOBIN 12.4 g/dL (14.0-18.0); LYMPHOCYTES # (AUTO) 3.1 K/uL (1.0-5.5); LYMPHOCYTES % (AUTO) 22.4 % (20.5-51.5); MEAN CORPUSCULAR HEMOGLOBIN 31 pg (27-31); MEAN CORPUSCULAR HGB CONC 34 % (32-36); MEAN CORPUSCULAR VOLUME 91 fL (79.0-98.0); MONOCYTES # (AUTO) 1.8 K/uL (0.0-1.0); MONOCYTES % (AUTO) 13.1 % (1.7-9.3); NEUTROPHILS # (AUTO) 8.6 K/uL (1.8-7.7); NEUTROPHILS % (AUTO) 61.8 % (40.0-70.0); PLATELET COUNT (AUTO) 320 K/uL (130-430); RED BLOOD CELL COUNT(AUTO) 4.04 MIL/uL (4.2-6.2); RED CELL DISTRIBUTION WIDTH 12.9 % (9.0-15.0); WHITE BLOOD COUNT (AUTO) 13.9 K/uL (4.8-10.8)
[2021-03-07 07:18] LABS: ALBUMIN 2.5 g/dL (3.4-4.8); CALCIUM 8.3 mg/dL (8.4-11.0); CREATININE 0.31 mg/dL (0.55-1.30); TOTAL BILIRUBIN 0.3 mg/dL (0.0-1.0)
[2021-03-07] MEDS: BUDESONIDE 0.5 MG/2 ML AMPUL.NEB INH SCH ×2 (07:52→19:43)
[2021-03-07] MEDS: LACTULOSE 20 GM/30 ML UDC GT SCH (08:55)
[2021-03-07] MEDS: DOCUSATE SODIUM 100 MG/10 ML UDC GT SCH ×2 (08:55→23:08)
[2021-03-07] MEDS: POTASSIUM CHLORIDE 20 MEQ/PKT PACKET GT SCH (08:55)
[2021-03-07] MEDS: LACTOBACILLUS RHAMNOSUS GG 1 CAP CAPSULE GT SCH ×2 (08:56→23:16)
[2021-03-07] MEDS: PHENobarbital 30 MG TABLET PO SCH ×2 (08:56→23:25)
[2021-03-07] MEDS: SIMETHICONE 80 MG TAB.CHEW GT SCH ×3 (08:56→23:15)
[2021-03-07] MEDS: MULTIVITS,CA,MINERALS/IRON/FA 1 TABLET GT SCH (08:56)
[2021-03-07] MEDS: TOPIRAMATE 100 MG TABLET(Topamax) GT SCH ×2 (08:57→23:16)
[2021-03-07] MEDS: ASCORBIC ACID 500 MG TABLET GT SCH ×2 (08:57→23:16)
[2021-03-07] MEDS: CHOLECALCIFEROL (VITAMIN D3) 2,000 UNIT TABLET GT SCH (08:57)
[2021-03-07] MEDS: DIGOXIN 0.25 MG TABLET GT SCH (08:57)
[2021-03-07] MEDS: CALCIUM CARBONATE 500 MG/ TAB.CHEW GT SCH (08:58)
[2021-03-07] MEDS: POLYETHYLENE GLYCOL 3350, 17 GM/ POWD.PACK GT SCH ×2 (08:58→23:07)
[2021-03-07] MEDS: LevETIRAcetam 500 MG/5 ML UDC ORAL LIQUID GT SCH ×2 (08:58→23:25)
[2021-03-07] MEDS: PEG 400/HYPROMELLOSE/GLYCERIN 15 ML DROPS EACH EYE SCH ×4 (08:59→23:27)
[2021-03-07] MEDS: MUPIROCIN 2% TOPICAL OINTMENT 22 GM NS SCH ×2 (08:59→23:17)
[2021-03-07] MEDS ORDERED: KCL 40 mEq in 100 mL (PREMIX) 100 ML IV ONE (12:30)
[2021-03-07] MEDS ORDERED: POTASSIUM CHLORIDE 20 MEQ/PKT PACKET PO ONE (12:30)
[2021-03-07 12:36] VITALS: BP_SYST 130
[2021-03-07] MEDS: POTASSIUM CHLORIDE 40 MEQ in NS 250 ML IV ONE ×2 (12:51→13:00)
[2021-03-07] MEDS ORDERED: LEVOFLOXACIN 250 MG/D5W 50 ML IV SCH ×2 (13:00→23:45)
[2021-03-07 16:28] VITALS: BP_SYST 136
[2021-03-07] MEDS: predniSONE 5 MG TABLET GT SCH (17:10)
[2021-03-07 21:15] LABS: POTASSIUM 2.7 mmol/L (3.5-5.1)
[2021-03-07] MEDS: DILTIAZEM HCL 30 MG TABLET PO SCH (23:15)
[2021-03-07] MEDS: FAMOTIDINE 20 MG TABLET GT SCH (23:15)
[2021-03-07] MEDS: MONTELUKAST 10 MG TABLET GT SCH (23:24)
[2021-03-07] MEDS: metroNIDAZOLE 250 mg/NS 50 ML IV SCH (23:26)
[2021-03-07] MEDS ORDERED: POTASSIUM CHLORIDE 40 MEQ in NS 250 ML IV ONE (23:45)
[2021-03-08] VITALS (7 sets, daily range): BP systolic 115–136
[2021-03-08] MEDS: CLORAZEPATE DIPOTASSIUM 3.75 MG GT SCH ×4 (01:40→20:11)
[2021-03-08] MEDS: ACETAMINOPHEN 325 MG TABLET GT PRN ×3 (02:20→20:12)
[2021-03-08] MEDS: GLYCOPYRROLATE 1 MG TABLET GT SCH ×4 (06:46→23:52)
[2021-03-08] MEDS: metroNIDAZOLE 250 mg/NS 50 ML IV SCH (06:49)
[2021-03-08] MEDS: D5/0.45 NS 1,000 ML IV SCH ×2 (08:03→20:12)
[2021-03-08] MEDS: LACTULOSE 20 GM/30 ML UDC GT SCH (09:19)
[2021-03-08] MEDS: DOCUSATE SODIUM 100 MG/10 ML UDC GT SCH ×2 (09:19→21:50)
[2021-03-08] MEDS: PHENobarbital 30 MG TABLET PO SCH ×2 (09:20→21:51)
[2021-03-08] MEDS: POLYETHYLENE GLYCOL 3350, 17 GM/ POWD.PACK GT SCH ×2 (09:20→21:50)
[2021-03-08] MEDS: POTASSIUM CHLORIDE 20 MEQ/PKT PACKET GT SCH (09:20)
[2021-03-08] MEDS: SIMETHICONE 80 MG TAB.CHEW GT SCH ×3 (09:21→21:51)
[2021-03-08] MEDS: CALCIUM CARBONATE 500 MG/ TAB.CHEW GT SCH (09:21)
[2021-03-08] MEDS: CHOLECALCIFEROL (VITAMIN D3) 2,000 UNIT TABLET GT SCH (09:21)
[2021-03-08] MEDS: LACTOBACILLUS RHAMNOSUS GG 1 CAP CAPSULE GT SCH ×2 (09:21→21:51)
[2021-03-08] MEDS: ASCORBIC ACID 500 MG TABLET GT SCH ×2 (09:21→21:51)
[2021-03-08] MEDS: TOPIRAMATE 100 MG TABLET(Topamax) GT SCH ×2 (09:22→21:51)
[2021-03-08] MEDS: LevETIRAcetam 500 MG/5 ML UDC ORAL LIQUID GT SCH ×2 (09:24→21:50)
[2021-03-08] MEDS: DIGOXIN 0.25 MG TABLET GT SCH (09:24)
[2021-03-08] MEDS: MUPIROCIN 2% TOPICAL OINTMENT 22 GM NS SCH ×2 (09:25→21:52)
[2021-03-08] MEDS: PEG 400/HYPROMELLOSE/GLYCERIN 15 ML DROPS EACH EYE SCH ×4 (09:26→21:52)
[2021-03-08] MEDS: MULTIVITS,CA,MINERALS/IRON/FA 1 TABLET GT SCH (09:41)
[2021-03-08] MEDS ORDERED: CEFEPIME 1 GM in D5W 50 ML IV ONE (10:45)
[2021-03-08 10:52] LABS: BASOPHILS # (AUTO) 0.1 K/uL (0.0-0.2); BASOPHILS % (AUTO) 0.3 % (0.0-2.0); EOSINOPHILS # (AUTO) 0.2 K/uL (0.0-0.4); EOSINOPHILS % (AUTO) 0.9 % (0.0-4.0); HEMATOCRIT 40.8 % (36-54); HEMOGLOBIN 13.9 g/dL (14.0-18.0); LYMPHOCYTES # (AUTO) 1.9 K/uL (1.0-5.5); LYMPHOCYTES % (AUTO) 9.9 % (20.5-51.5); MEAN CORPUSCULAR HEMOGLOBIN 31 pg (27-31); MEAN CORPUSCULAR HGB CONC 34 % (32-36); MEAN CORPUSCULAR VOLUME 91 fL (79.0-98.0); MONOCYTES # (AUTO) 2.9 K/uL (0.0-1.0); MONOCYTES % (AUTO) 15.3 % (1.7-9.3); NEUTROPHILS # (AUTO) 14.1 K/uL (1.8-7.7); NEUTROPHILS % (AUTO) 73.6 % (40.0-70.0); PLATELET COUNT (AUTO) 379 K/uL (130-430); RED BLOOD CELL COUNT(AUTO) 4.48 MIL/uL (4.2-6.2); RED CELL DISTRIBUTION WIDTH 12.9 % (9.0-15.0); WHITE BLOOD COUNT (AUTO) 19.1 K/uL (4.8-10.8)
[2021-03-08 11:25] LABS: CALCIUM 9.2 mg/dL (8.4-11.0); CREATININE 0.42 mg/dL (0.55-1.30); POTASSIUM 3.8 mmol/L (3.5-5.1)
[2021-03-08 11:29] LABS: ALBUMIN 2.9 g/dL (3.4-4.8); TOTAL BILIRUBIN 0.2 mg/dL (0.0-1.0)
[2021-03-08] MEDS: BUDESONIDE 0.5 MG/2 ML AMPUL.NEB INH SCH ×2 (13:14→19:32)
[2021-03-08] MEDS: predniSONE 5 MG TABLET GT SCH (17:41)
[2021-03-08] MEDS: DILTIAZEM HCL 30 MG TABLET PO SCH (20:11)
[2021-03-08] MEDS: CEFEPIME 1 GM in D5W 50 ML IV SCH (21:50)
[2021-03-08] MEDS: MONTELUKAST 10 MG TABLET GT SCH (21:51)
[2021-03-08] MEDS: FAMOTIDINE 20 MG TABLET GT SCH (21:52)
[2021-03-09 01:00] VITALS: BP_SYST 115
[2021-03-09] MEDS: CLORAZEPATE DIPOTASSIUM 3.75 MG GT SCH ×4 (02:13→20:58)
[2021-03-09] MEDS: GLYCOPYRROLATE 1 MG TABLET GT SCH ×3 (05:11→17:52)
[2021-03-09] MEDS: BUDESONIDE 0.5 MG/2 ML AMPUL.NEB INH SCH ×2 (07:36→20:22)
[2021-03-09 09:00] VITALS: BP_SYST 120
[2021-03-09] MEDS: POLYETHYLENE GLYCOL 3350, 17 GM/ POWD.PACK GT SCH ×2 (09:00→21:00)
[2021-03-09] MEDS: SIMETHICONE 80 MG TAB.CHEW GT SCH ×3 (09:05→21:00)
[2021-03-09] MEDS: DOCUSATE SODIUM 100 MG/10 ML UDC GT SCH ×2 (09:07→20:59)
[2021-03-09] MEDS: TOPIRAMATE 100 MG TABLET(Topamax) GT SCH ×2 (09:09→20:59)
[2021-03-09] MEDS: CHOLECALCIFEROL (VITAMIN D3) 2,000 UNIT TABLET GT SCH (09:09)
[2021-03-09] MEDS: LACTULOSE 20 GM/30 ML UDC GT SCH (09:11)
[2021-03-09] MEDS: DIGOXIN 0.25 MG TABLET GT SCH (09:12)
[2021-03-09] MEDS: MULTIVITS,CA,MINERALS/IRON/FA 1 TABLET GT SCH (09:12)
[2021-03-09] MEDS: CALCIUM CARBONATE 500 MG/ TAB.CHEW GT SCH (09:13)
[2021-03-09] MEDS: ASCORBIC ACID 500 MG TABLET GT SCH ×2 (09:13→21:00)
[2021-03-09] MEDS: CEFEPIME 1 GM in D5W 50 ML IV SCH (09:18)
[2021-03-09] MEDS: PHENobarbital 30 MG TABLET PO SCH ×2 (09:26→21:01)
[2021-03-09] MEDS: LevETIRAcetam 500 MG/5 ML UDC ORAL LIQUID GT SCH ×2 (09:44→21:00)
[2021-03-09] MEDS: POTASSIUM CHLORIDE 20 MEQ/PKT PACKET GT SCH (09:45)
[2021-03-09] MEDS: MUPIROCIN 2% TOPICAL OINTMENT 22 GM NS SCH ×2 (09:46→21:06)
[2021-03-09] MEDS: ACETAMINOPHEN 325 MG TABLET GT PRN (09:50)
[2021-03-09] MEDS: PEG 400/HYPROMELLOSE/GLYCERIN 15 ML DROPS EACH EYE SCH ×4 (09:51→21:04)
[2021-03-09] MEDS: SCOPOLAMINE HYDROBROMIDE 1 MG PATCH .72 H (TRANSDERM-SCOP) TD SCH (09:53)
[2021-03-09 11:28] VITALS: BP_SYST 138
[2021-03-09] MEDS: LACTOBACILLUS RHAMNOSUS GG 1 CAP CAPSULE GT SCH ×2 (14:51→20:59)
[2021-03-09] MEDS: D5/0.45 NS 1,000 ML IV SCH (14:53)
[2021-03-09] MEDS ORDERED: MEROPENEM 1 GM in NS 100 ML IV ONE (15:00)
[2021-03-09 15:59] VITALS: BP_SYST 113
[2021-03-09] MEDS: predniSONE 5 MG TABLET GT SCH (17:52)
[2021-03-09 20:15] VITALS: BP_SYST 134
[2021-03-09] MEDS: MONTELUKAST 10 MG TABLET GT SCH (21:00)
[2021-03-09] MEDS: FAMOTIDINE 20 MG TABLET GT SCH (21:00)
[2021-03-09] MEDS: DILTIAZEM HCL 30 MG TABLET PO SCH (21:01)
[2021-03-09] MEDS: MEROPENEM 1 GM in NS 100 ML IV SCH (21:04)
[2021-03-10] VITALS: BP_SYST 117
[2021-03-10] MEDS: GLYCOPYRROLATE 1 MG TABLET GT SCH ×4 (01:02→17:20)
[2021-03-10] MEDS: D5/0.45 NS 1,000 ML IV SCH ×2 (02:17→17:14)
[2021-03-10] MEDS: CLORAZEPATE DIPOTASSIUM 3.75 MG GT SCH ×4 (02:21→21:59)
[2021-03-10] MEDS: ACETAMINOPHEN 325 MG TABLET GT PRN (02:21)
[2021-03-10] MEDS: MEROPENEM 1 GM in NS 100 ML IV SCH ×3 (06:51→21:58)
[2021-03-10] MEDS: BUDESONIDE 0.5 MG/2 ML AMPUL.NEB INH SCH (08:07)
[2021-03-10] MEDS: POLYETHYLENE GLYCOL 3350, 17 GM/ POWD.PACK GT SCH ×2 (08:53→21:58)
[2021-03-10] MEDS: LACTULOSE 20 GM/30 ML UDC GT SCH (08:54)
[2021-03-10] MEDS: DOCUSATE SODIUM 100 MG/10 ML UDC GT SCH ×2 (08:56→22:00)
[2021-03-10] MEDS: LevETIRAcetam 500 MG/5 ML UDC ORAL LIQUID GT SCH ×2 (09:00→22:02)
[2021-03-10] MEDS: TOPIRAMATE 100 MG TABLET(Topamax) GT SCH ×2 (09:01→22:00)
[2021-03-10] MEDS: CALCIUM CARBONATE 500 MG/ TAB.CHEW GT SCH (09:02)
[2021-03-10] MEDS: POTASSIUM CHLORIDE 20 MEQ/PKT PACKET GT SCH (09:02)
[2021-03-10] MEDS: SIMETHICONE 80 MG TAB.CHEW GT SCH ×3 (09:04→22:00)
[2021-03-10] MEDS: ASCORBIC ACID 500 MG TABLET GT SCH ×2 (09:05→22:01)
[2021-03-10] MEDS: LACTOBACILLUS RHAMNOSUS GG 1 CAP CAPSULE GT SCH ×2 (09:05→22:01)
[2021-03-10] MEDS: PHENobarbital 30 MG TABLET PO SCH ×2 (09:05→22:00)
[2021-03-10] MEDS: DIGOXIN 0.25 MG TABLET GT SCH (09:06)
[2021-03-10] MEDS: CHOLECALCIFEROL (VITAMIN D3) 2,000 UNIT TABLET GT SCH (09:06)
[2021-03-10] MEDS: MULTIVITS,CA,MINERALS/IRON/FA 1 TABLET GT SCH (09:06)
[2021-03-10] MEDS: PEG 400/HYPROMELLOSE/GLYCERIN 15 ML DROPS EACH EYE SCH ×4 (09:08→22:02)
[2021-03-10] MEDS: MUPIROCIN 2% TOPICAL OINTMENT 22 GM NS SCH ×2 (09:09→22:03)
[2021-03-10 09:18] VITALS: BP_SYST 132
[2021-03-10] MEDS: IPRATROPIUM/ALBUTEROL SULFATE 3 ML AMPUL.NEB (DUONEB) INH PRN (12:16)
[2021-03-10 12:30] VITALS: BP_SYST 131
[2021-03-10 16:03] VITALS: BP_SYST 130
[2021-03-10] MEDS: predniSONE 5 MG TABLET GT SCH (17:10)
[2021-03-10 21:00] VITALS: BP_SYST 135
[2021-03-10] MEDS: DILTIAZEM HCL 30 MG TABLET PO SCH (21:59)
[2021-03-10] MEDS: MONTELUKAST 10 MG TABLET GT SCH (22:01)
[2021-03-10] MEDS: FAMOTIDINE 20 MG TABLET GT SCH (22:03)
[2021-03-11] VITALS (7 sets, daily range): BP systolic 120–141
[2021-03-11] MEDS: GLYCOPYRROLATE 1 MG TABLET GT SCH ×4 (00:33→18:01)
[2021-03-11] MEDS: CLORAZEPATE DIPOTASSIUM 3.75 MG GT SCH ×4 (02:14→21:15)
[2021-03-11] MEDS: MEROPENEM 1 GM in NS 100 ML IV SCH ×3 (05:13→21:17)
[2021-03-11] MEDS: D5/0.45 NS 1,000 ML IV SCH ×2 (05:14→21:18)
[2021-03-11] MEDS: BUDESONIDE 0.5 MG/2 ML AMPUL.NEB INH SCH (08:17)
[2021-03-11] MEDS: POLYETHYLENE GLYCOL 3350, 17 GM/ POWD.PACK GT SCH ×2 (09:28→21:11)
[2021-03-11] MEDS: LevETIRAcetam 500 MG/5 ML UDC ORAL LIQUID GT SCH ×2 (09:28→21:14)
[2021-03-11] MEDS: DOCUSATE SODIUM 100 MG/10 ML UDC GT SCH ×2 (09:28→21:13)
[2021-03-11] MEDS: LACTULOSE 20 GM/30 ML UDC GT SCH (09:28)
[2021-03-11] MEDS: LACTOBACILLUS RHAMNOSUS GG 1 CAP CAPSULE GT SCH ×2 (09:29→21:15)
[2021-03-11] MEDS: PHENobarbital 30 MG TABLET PO SCH ×2 (09:29→21:16)
[2021-03-11] MEDS: POTASSIUM CHLORIDE 20 MEQ/PKT PACKET GT SCH (09:29)
[2021-03-11] MEDS: MULTIVITS,CA,MINERALS/IRON/FA 1 TABLET GT SCH (09:29)
[2021-03-11] MEDS: CHOLECALCIFEROL (VITAMIN D3) 2,000 UNIT TABLET GT SCH (09:30)
[2021-03-11] MEDS: CALCIUM CARBONATE 500 MG/ TAB.CHEW GT SCH (09:30)
[2021-03-11] MEDS: ASCORBIC ACID 500 MG TABLET GT SCH ×2 (09:30→21:16)
[2021-03-11] MEDS: TOPIRAMATE 100 MG TABLET(Topamax) GT SCH ×2 (09:30→21:16)
[2021-03-11] MEDS: SIMETHICONE 80 MG TAB.CHEW GT SCH ×3 (09:31→21:16)
[2021-03-11] MEDS: DIGOXIN 0.25 MG TABLET GT SCH (09:31)
[2021-03-11] MEDS: MUPIROCIN 2% TOPICAL OINTMENT 22 GM NS SCH ×2 (09:32→21:18)
[2021-03-11] MEDS: PEG 400/HYPROMELLOSE/GLYCERIN 15 ML DROPS EACH EYE SCH ×4 (09:32→21:19)
[2021-03-11] MEDS: ACETAMINOPHEN 325 MG TABLET GT PRN (10:04)
[2021-03-11 15:59] LABS: BASOPHILS # (AUTO) 0.1 K/uL (0.0-0.2); BASOPHILS % (AUTO) 0.3 % (0.0-2.0); EOSINOPHILS # (AUTO) 0.2 K/uL (0.0-0.4); EOSINOPHILS % (AUTO) 1.5 % (0.0-4.0); HEMATOCRIT 40.7 % (36-54); LYMPHOCYTES % (AUTO) 12.2 % (20.5-51.5); MEAN CORPUSCULAR HEMOGLOBIN 31 pg (27-31); MEAN CORPUSCULAR HGB CONC 34 % (32-36); MEAN CORPUSCULAR VOLUME 91 fL (79.0-98.0); MONOCYTES # (AUTO) 2.1 K/uL (0.0-1.0); MONOCYTES % (AUTO) 13.1 % (1.7-9.3); NEUTROPHILS # (AUTO) 11.7 K/uL (1.8-7.7); NEUTROPHILS % (AUTO) 72.9 % (40.0-70.0); PLATELET COUNT (AUTO) 420 K/uL (130-430); RED BLOOD CELL COUNT(AUTO) 4.47 MIL/uL (4.2-6.2); RED CELL DISTRIBUTION WIDTH 12.9 % (9.0-15.0); WHITE BLOOD COUNT (AUTO) 16.1 K/uL (4.8-10.8)
[2021-03-11] MEDS: predniSONE 5 MG TABLET GT SCH (16:30)
[2021-03-11] MEDS: MONTELUKAST 10 MG TABLET GT SCH (21:15)
[2021-03-11] MEDS: FAMOTIDINE 20 MG TABLET GT SCH (21:16)
[2021-03-11] MEDS: DILTIAZEM HCL 30 MG TABLET PO SCH (21:17)
[2021-03-12] VITALS (7 sets, daily range): BP systolic 125–142
[2021-03-12] MEDS: CLORAZEPATE DIPOTASSIUM 3.75 MG GT SCH ×4 (01:10→20:10)
[2021-03-12] MEDS: GLYCOPYRROLATE 1 MG TABLET GT SCH ×4 (01:10→18:45)
[2021-03-12] MEDS: MEROPENEM 1 GM in NS 100 ML IV SCH ×3 (06:08→21:56)
[2021-03-12] MEDS: BUDESONIDE 0.5 MG/2 ML AMPUL.NEB INH SCH (07:14)
[2021-03-12] MEDS: IPRATROPIUM/ALBUTEROL SULFATE 3 ML AMPUL.NEB (DUONEB) INH PRN (07:14)
[2021-03-12] MEDS: PHENobarbital 30 MG TABLET PO SCH ×2 (08:28→20:09)
[2021-03-12] MEDS: DIGOXIN 0.25 MG TABLET GT SCH (08:29)
[2021-03-12] MEDS: CALCIUM CARBONATE 500 MG/ TAB.CHEW GT SCH (08:30)
[2021-03-12] MEDS: LACTOBACILLUS RHAMNOSUS GG 1 CAP CAPSULE GT SCH ×2 (08:30→20:08)
[2021-03-12] MEDS: POTASSIUM CHLORIDE 20 MEQ/PKT PACKET GT SCH (08:30)
[2021-03-12] MEDS: CHOLECALCIFEROL (VITAMIN D3) 2,000 UNIT TABLET GT SCH (08:31)
[2021-03-12] MEDS: ASCORBIC ACID 500 MG TABLET GT SCH ×2 (08:31→20:09)
[2021-03-12] MEDS: MULTIVITS,CA,MINERALS/IRON/FA 1 TABLET GT SCH (08:31)
[2021-03-12] MEDS: LACTULOSE 20 GM/30 ML UDC GT SCH (08:32)
[2021-03-12] MEDS: SCOPOLAMINE HYDROBROMIDE 1 MG PATCH .72 H (TRANSDERM-SCOP) TD SCH (08:33)
[2021-03-12] MEDS: POLYETHYLENE GLYCOL 3350, 17 GM/ POWD.PACK GT SCH ×2 (08:33→20:10)
[2021-03-12] MEDS: LevETIRAcetam 500 MG/5 ML UDC ORAL LIQUID GT SCH ×2 (08:34→20:11)
[2021-03-12] MEDS: SIMETHICONE 80 MG TAB.CHEW GT SCH ×3 (08:37→20:09)
[2021-03-12 08:39] LABS: BASOPHILS # (AUTO) 0.1 K/uL (0.0-0.2); BASOPHILS % (AUTO) 0.4 % (0.0-2.0); EOSINOPHILS # (AUTO) 0.3 K/uL (0.0-0.4); EOSINOPHILS % (AUTO) 1.8 % (0.0-4.0); HEMATOCRIT 41.9 % (36-54); HEMOGLOBIN 14.2 g/dL (14.0-18.0); LYMPHOCYTES # (AUTO) 2.5 K/uL (1.0-5.5); LYMPHOCYTES % (AUTO) 14.4 % (20.5-51.5); MEAN CORPUSCULAR HEMOGLOBIN 31 pg (27-31); MEAN CORPUSCULAR HGB CONC 34 % (32-36); MEAN CORPUSCULAR VOLUME 90 fL (79.0-98.0); MONOCYTES # (AUTO) 2.5 K/uL (0.0-1.0); MONOCYTES % (AUTO) 14.5 % (1.7-9.3); NEUTROPHILS # (AUTO) 12.1 K/uL (1.8-7.7); NEUTROPHILS % (AUTO) 68.9 % (40.0-70.0); PLATELET COUNT (AUTO) 441 K/uL (130-430); RED BLOOD CELL COUNT(AUTO) 4.64 MIL/uL (4.2-6.2); WHITE BLOOD COUNT (AUTO) 17.5 K/uL (4.8-10.8)
[2021-03-12] MEDS: MUPIROCIN 2% TOPICAL OINTMENT 22 GM NS SCH ×2 (09:08→20:13)
[2021-03-12] MEDS: DOCUSATE SODIUM 100 MG/10 ML UDC GT SCH ×2 (09:08→20:11)
[2021-03-12] MEDS: TOPIRAMATE 100 MG TABLET(Topamax) GT SCH ×2 (09:09→20:08)
[2021-03-12] MEDS: PEG 400/HYPROMELLOSE/GLYCERIN 15 ML DROPS EACH EYE SCH ×4 (09:09→20:13)
[2021-03-12] MEDS: ACETAMINOPHEN 325 MG TABLET GT PRN ×2 (13:33→18:47)
[2021-03-12] MEDS: D5/0.45 NS 1,000 ML IV SCH (13:47)
[2021-03-12] MEDS: predniSONE 5 MG TABLET GT SCH (18:40)
[2021-03-12] MEDS: MONTELUKAST 10 MG TABLET GT SCH (20:09)
[2021-03-12] MEDS: DILTIAZEM HCL 30 MG TABLET PO SCH (20:09)
[2021-03-12] MEDS: FAMOTIDINE 20 MG TABLET GT SCH (20:10)
[2021-03-13] MEDS: GLYCOPYRROLATE 1 MG TABLET GT SCH ×4 (00:53→17:08)
[2021-03-13 01:43] VITALS: BP_SYST 129
[2021-03-13] MEDS: CLORAZEPATE DIPOTASSIUM 3.75 MG GT SCH ×4 (02:32→22:42)
[2021-03-13] MEDS: D5/0.45 NS 1,000 ML IV SCH ×3 (02:33→22:41)
[2021-03-13] MEDS: MEROPENEM 1 GM in NS 100 ML IV SCH ×3 (05:36→22:41)
[2021-03-13] MEDS: BUDESONIDE 0.5 MG/2 ML AMPUL.NEB INH SCH ×2 (07:37→19:47)
[2021-03-13 08:00] VITALS: BP_SYST 135
[2021-03-13] MEDS: LACTULOSE 20 GM/30 ML UDC GT SCH (08:48)
[2021-03-13] MEDS: POLYETHYLENE GLYCOL 3350, 17 GM/ POWD.PACK GT SCH ×2 (08:49→22:41)
[2021-03-13] MEDS: POTASSIUM CHLORIDE 20 MEQ/PKT PACKET GT SCH (08:49)
[2021-03-13] MEDS: CALCIUM CARBONATE 500 MG/ TAB.CHEW GT SCH (08:52)
[2021-03-13] MEDS: LACTOBACILLUS RHAMNOSUS GG 1 CAP CAPSULE GT SCH ×2 (08:52→22:44)
[2021-03-13] MEDS: TOPIRAMATE 100 MG TABLET(Topamax) GT SCH ×2 (08:53→22:44)
[2021-03-13] MEDS: DOCUSATE SODIUM 100 MG/10 ML UDC GT SCH ×2 (08:55→22:42)
[2021-03-13] MEDS: LevETIRAcetam 500 MG/5 ML UDC ORAL LIQUID GT SCH ×2 (08:57→21:00)
[2021-03-13] MEDS: DIGOXIN 0.25 MG TABLET GT SCH (09:01)
[2021-03-13] MEDS: SIMETHICONE 80 MG TAB.CHEW GT SCH ×3 (09:02→22:43)
[2021-03-13] MEDS: PHENobarbital 30 MG TABLET PO SCH ×2 (09:02→22:44)
[2021-03-13] MEDS: ASCORBIC ACID 500 MG TABLET GT SCH ×2 (09:02→22:43)
[2021-03-13] MEDS: MULTIVITS,CA,MINERALS/IRON/FA 1 TABLET GT SCH (09:02)
[2021-03-13] MEDS: CHOLECALCIFEROL (VITAMIN D3) 2,000 UNIT TABLET GT SCH (09:02)
[2021-03-13] MEDS: PEG 400/HYPROMELLOSE/GLYCERIN 15 ML DROPS EACH EYE SCH ×4 (09:03→21:00)
[2021-03-13 11:09] LABS: BASOPHILS # (AUTO) 0.1 K/uL (0.0-0.2); BASOPHILS % (AUTO) 0.4 % (0.0-2.0); EOSINOPHILS # (AUTO) 0.4 K/uL (0.0-0.4); EOSINOPHILS % (AUTO) 2.3 % (0.0-4.0); HEMOGLOBIN 15.2 g/dL (14.0-18.0); LYMPHOCYTES # (AUTO) 2.5 K/uL (1.0-5.5); LYMPHOCYTES % (AUTO) 14.9 % (20.5-51.5); MEAN CORPUSCULAR HEMOGLOBIN 31 pg (27-31); MEAN CORPUSCULAR HGB CONC 34 % (32-36); MEAN CORPUSCULAR VOLUME 92 fL (79.0-98.0); MONOCYTES # (AUTO) 2.4 K/uL (0.0-1.0); MONOCYTES % (AUTO) 14.4 % (1.7-9.3); NEUTROPHILS # (AUTO) 11.4 K/uL (1.8-7.7); PLATELET COUNT (AUTO) 379 K/uL (130-430); RED BLOOD CELL COUNT(AUTO) 4.89 MIL/uL (4.2-6.2); RED CELL DISTRIBUTION WIDTH 13.1 % (9.0-15.0); WHITE BLOOD COUNT (AUTO) 16.8 K/uL (4.8-10.8)
[2021-03-13 11:21] LABS: CALCIUM 9.4 mg/dL (8.4-11.0); CREATININE 0.34 mg/dL (0.55-1.30); POTASSIUM 4.4 mmol/L (3.5-5.1)
[2021-03-13 11:24] VITALS: BP_SYST 127
[2021-03-13 11:24] LABS: ALBUMIN 2.6 g/dL (3.4-4.8); TOTAL BILIRUBIN 0.3 mg/dL (0.0-1.0)
[2021-03-13] MEDS: ACETAMINOPHEN 325 MG TABLET GT PRN (13:46)
[2021-03-13 15:38] VITALS: BP_SYST 127
[2021-03-13] MEDS: predniSONE 5 MG TABLET GT SCH (17:08)
[2021-03-13] MEDS: COLISTIMETHATE SODIUM 150 MG VIAL INH SCH (19:50)
[2021-03-13 21:00] VITALS: BP_SYST 131
[2021-03-13] MEDS: FAMOTIDINE 20 MG TABLET GT SCH (22:42)
[2021-03-13] MEDS: MONTELUKAST 10 MG TABLET GT SCH (22:43)
[2021-03-13] MEDS: DILTIAZEM HCL 30 MG TABLET PO SCH (22:44)
[2021-03-14] VITALS: BP_SYST 122
[2021-03-14] MEDS: CLORAZEPATE DIPOTASSIUM 3.75 MG GT SCH ×4 (02:43→21:56)
[2021-03-14] MEDS: GLYCOPYRROLATE 1 MG TABLET GT SCH ×4 (06:00→17:38)
[2021-03-14] MEDS: MEROPENEM 1 GM in NS 100 ML IV SCH ×3 (06:03→21:58)
[2021-03-14] MEDS: BUDESONIDE 0.5 MG/2 ML AMPUL.NEB INH SCH ×2 (07:09→20:23)
[2021-03-14 07:10] VITALS: BP_SYST 131
[2021-03-14] MEDS: COLISTIMETHATE SODIUM 150 MG VIAL INH SCH ×2 (07:11→20:09)
[2021-03-14 08:00] VITALS: BP_SYST 131
[2021-03-14] MEDS: PEG 400/HYPROMELLOSE/GLYCERIN 15 ML DROPS EACH EYE SCH ×4 (08:34→22:04)
[2021-03-14] MEDS: LACTULOSE 20 GM/30 ML UDC GT SCH (08:35)
[2021-03-14] MEDS: POLYETHYLENE GLYCOL 3350, 17 GM/ POWD.PACK GT SCH ×2 (08:35→21:58)
[2021-03-14] MEDS: DOCUSATE SODIUM 100 MG/10 ML UDC GT SCH ×2 (08:35→21:58)
[2021-03-14] MEDS: POTASSIUM CHLORIDE 20 MEQ/PKT PACKET GT SCH (08:36)
[2021-03-14] MEDS: PHENobarbital 30 MG TABLET PO SCH ×2 (08:36→21:56)
[2021-03-14] MEDS: TOPIRAMATE 100 MG TABLET(Topamax) GT SCH ×2 (08:36→21:55)
[2021-03-14] MEDS: CALCIUM CARBONATE 500 MG/ TAB.CHEW GT SCH (08:37)
[2021-03-14] MEDS: ASCORBIC ACID 500 MG TABLET GT SCH ×2 (08:37→21:56)
[2021-03-14] MEDS: MULTIVITS,CA,MINERALS/IRON/FA 1 TABLET GT SCH (08:37)
[2021-03-14] MEDS: DIGOXIN 0.25 MG TABLET GT SCH (08:38)
[2021-03-14] MEDS: CHOLECALCIFEROL (VITAMIN D3) 2,000 UNIT TABLET GT SCH (08:38)
[2021-03-14] MEDS: LACTOBACILLUS RHAMNOSUS GG 1 CAP CAPSULE GT SCH ×2 (08:39→21:55)
[2021-03-14] MEDS: SIMETHICONE 80 MG TAB.CHEW GT SCH ×3 (08:39→21:56)
[2021-03-14] MEDS: LevETIRAcetam 500 MG/5 ML UDC ORAL LIQUID GT SCH ×2 (08:55→21:54)
[2021-03-14 11:24] VITALS: BP_SYST 152
[2021-03-14 12:34] LABS: BASOPHILS # (AUTO) 0.1 K/uL (0.0-0.2); BASOPHILS % (AUTO) 0.6 % (0.0-2.0); EOSINOPHILS # (AUTO) 0.6 K/uL (0.0-0.4); EOSINOPHILS % (AUTO) 3.7 % (0.0-4.0); HEMATOCRIT 41.4 % (36-54); HEMOGLOBIN 14.4 g/dL (14.0-18.0); LYMPHOCYTES # (AUTO) 2.5 K/uL (1.0-5.5); LYMPHOCYTES % (AUTO) 14.8 % (20.5-51.5); MEAN CORPUSCULAR HEMOGLOBIN 31 pg (27-31); MEAN CORPUSCULAR HGB CONC 35 % (32-36); MEAN CORPUSCULAR VOLUME 90 fL (79.0-98.0); MONOCYTES # (AUTO) 2.2 K/uL (0.0-1.0); MONOCYTES % (AUTO) 12.9 % (1.7-9.3); NEUTROPHILS # (AUTO) 11.4 K/uL (1.8-7.7); PLATELET COUNT (AUTO) 450 K/uL (130-430); RED BLOOD CELL COUNT(AUTO) 4.58 MIL/uL (4.2-6.2); WHITE BLOOD COUNT (AUTO) 16.7 K/uL (4.8-10.8)
[2021-03-14 15:57] VITALS: BP_SYST 135
[2021-03-14] MEDS: predniSONE 5 MG TABLET GT SCH (17:38)
[2021-03-14 20:00] VITALS: BP_SYST 138
[2021-03-14] MEDS: D5/0.45 NS 1,000 ML IV SCH (21:21)
[2021-03-14] MEDS: MONTELUKAST 10 MG TABLET GT SCH (21:55)
[2021-03-14] MEDS: FAMOTIDINE 20 MG TABLET GT SCH (21:55)
[2021-03-14] MEDS: DILTIAZEM HCL 30 MG TABLET PO SCH (22:04)
[2021-03-15 01:00] VITALS: BP_SYST 122
[2021-03-15] MEDS: GLYCOPYRROLATE 1 MG TABLET GT SCH ×4 (01:57→17:20)
[2021-03-15] MEDS: CLORAZEPATE DIPOTASSIUM 3.75 MG GT SCH ×4 (01:58→21:40)
[2021-03-15] MEDS: MEROPENEM 1 GM in NS 100 ML IV SCH ×3 (05:07→21:41)
[2021-03-15] MEDS: COLISTIMETHATE SODIUM 150 MG VIAL INH SCH ×2 (07:20→19:44)
[2021-03-15] MEDS: BUDESONIDE 0.5 MG/2 ML AMPUL.NEB INH SCH ×2 (07:20→19:44)
[2021-03-15 08:00] VITALS: BP_SYST 123
[2021-03-15] MEDS: LACTULOSE 20 GM/30 ML UDC GT SCH (08:15)
[2021-03-15] MEDS: LevETIRAcetam 500 MG/5 ML UDC ORAL LIQUID GT SCH ×2 (08:15→21:41)
[2021-03-15] MEDS: DOCUSATE SODIUM 100 MG/10 ML UDC GT SCH ×2 (08:16→21:41)
[2021-03-15] MEDS: POLYETHYLENE GLYCOL 3350, 17 GM/ POWD.PACK GT SCH ×2 (08:16→21:38)
[2021-03-15] MEDS: CHOLECALCIFEROL (VITAMIN D3) 2,000 UNIT TABLET GT SCH (08:16)
[2021-03-15] MEDS: POTASSIUM CHLORIDE 20 MEQ/PKT PACKET GT SCH (08:17)
[2021-03-15] MEDS: SCOPOLAMINE HYDROBROMIDE 1 MG PATCH .72 H (TRANSDERM-SCOP) TD SCH (08:17)
[2021-03-15] MEDS: PHENobarbital 30 MG TABLET PO SCH ×2 (08:17→21:40)
[2021-03-15] MEDS: LACTOBACILLUS RHAMNOSUS GG 1 CAP CAPSULE GT SCH ×2 (08:18→21:40)
[2021-03-15] MEDS: TOPIRAMATE 100 MG TABLET(Topamax) GT SCH ×2 (08:18→21:38)
[2021-03-15] MEDS: MULTIVITS,CA,MINERALS/IRON/FA 1 TABLET GT SCH (08:19)
[2021-03-15] MEDS: DIGOXIN 0.25 MG TABLET GT SCH (08:19)
[2021-03-15] MEDS: PEG 400/HYPROMELLOSE/GLYCERIN 15 ML DROPS EACH EYE SCH ×4 (08:20→21:41)
[2021-03-15] MEDS: SIMETHICONE 80 MG TAB.CHEW GT SCH ×3 (08:20→21:38)
[2021-03-15] MEDS: ASCORBIC ACID 500 MG TABLET GT SCH ×2 (08:21→21:40)
[2021-03-15] MEDS: CALCIUM CARBONATE 500 MG/ TAB.CHEW GT SCH (08:21)
[2021-03-15 10:29] LABS: BASOPHILS # (AUTO) 0.1 K/uL (0.0-0.2); BASOPHILS % (AUTO) 0.5 % (0.0-2.0); EOSINOPHILS # (AUTO) 0.6 K/uL (0.0-0.4); EOSINOPHILS % (AUTO) 6.6 % (0.0-4.0); HEMATOCRIT 39.9 % (36-54); HEMOGLOBIN 13.7 g/dL (14.0-18.0); LYMPHOCYTES % (AUTO) 20.2 % (20.5-51.5); MEAN CORPUSCULAR HEMOGLOBIN 31 pg (27-31); MEAN CORPUSCULAR HGB CONC 34 % (32-36); MEAN CORPUSCULAR VOLUME 91 fL (79.0-98.0); MONOCYTES # (AUTO) 1.4 K/uL (0.0-1.0); MONOCYTES % (AUTO) 13.9 % (1.7-9.3); NEUTROPHILS # (AUTO) 5.8 K/uL (1.8-7.7); NEUTROPHILS % (AUTO) 58.8 % (40.0-70.0); PLATELET COUNT (AUTO) 390 K/uL (130-430); RED BLOOD CELL COUNT(AUTO) 4.38 MIL/uL (4.2-6.2); RED CELL DISTRIBUTION WIDTH 13.2 % (9.0-15.0); WHITE BLOOD COUNT (AUTO) 9.8 K/uL (4.8-10.8)
[2021-03-15 11:23] VITALS: BP_SYST 107
[2021-03-15] MEDS: D5/0.45 NS 1,000 ML IV SCH (11:44)
[2021-03-15 15:24] VITALS: BP_SYST 149
[2021-03-15] MEDS: predniSONE 5 MG TABLET GT SCH (17:20)
[2021-03-15 20:00] VITALS: BP_SYST 109
[2021-03-15] MEDS: MONTELUKAST 10 MG TABLET GT SCH (21:40)
[2021-03-15] MEDS: FAMOTIDINE 20 MG TABLET GT SCH (21:40)
[2021-03-15] MEDS: DILTIAZEM HCL 30 MG TABLET PO SCH (22:09)
[2021-03-16] VITALS: BP_SYST 119
[2021-03-16] MEDS: CLORAZEPATE DIPOTASSIUM 3.75 MG GT SCH ×2 (01:03→08:28)
[2021-03-16] MEDS: GLYCOPYRROLATE 1 MG TABLET GT SCH ×5 (01:03→23:44)
[2021-03-16] MEDS: D5/0.45 NS 1,000 ML IV SCH ×2 (01:08→16:36)
[2021-03-16] MEDS: MEROPENEM 1 GM in NS 100 ML IV SCH (05:32)
[2021-03-16] MEDS: BUDESONIDE 0.5 MG/2 ML AMPUL.NEB INH SCH ×2 (07:20→20:06)
[2021-03-16] MEDS: COLISTIMETHATE SODIUM 150 MG VIAL INH SCH ×2 (07:22→20:06)
[2021-03-16] MEDS: TOPIRAMATE 100 MG TABLET(Topamax) GT SCH ×2 (08:26→21:05)
[2021-03-16] MEDS: CHOLECALCIFEROL (VITAMIN D3) 2,000 UNIT TABLET GT SCH (08:26)
[2021-03-16] MEDS: PHENobarbital 30 MG TABLET PO SCH ×2 (08:26→21:05)
[2021-03-16] MEDS: MULTIVITS,CA,MINERALS/IRON/FA 1 TABLET GT SCH (08:26)
[2021-03-16] MEDS: SIMETHICONE 80 MG TAB.CHEW GT SCH ×3 (08:27→21:11)
[2021-03-16] MEDS: CALCIUM CARBONATE 500 MG/ TAB.CHEW GT SCH (08:27)
[2021-03-16] MEDS: DIGOXIN 0.25 MG TABLET GT SCH (08:27)
[2021-03-16] MEDS: LACTOBACILLUS RHAMNOSUS GG 1 CAP CAPSULE GT SCH ×2 (08:27→21:08)
[2021-03-16] MEDS: ASCORBIC ACID 500 MG TABLET GT SCH ×2 (08:28→21:09)
[2021-03-16] MEDS: PEG 400/HYPROMELLOSE/GLYCERIN 15 ML DROPS EACH EYE SCH ×4 (08:44→21:12)
[2021-03-16] MEDS: LevETIRAcetam 500 MG/5 ML UDC ORAL LIQUID GT SCH ×2 (08:44→21:53)
[2021-03-16] MEDS: POTASSIUM CHLORIDE 20 MEQ/PKT PACKET GT SCH (08:44)
[2021-03-16] MEDS: DOCUSATE SODIUM 100 MG/10 ML UDC GT SCH ×3 (09:00→21:04)
[2021-03-16] MEDS: POLYETHYLENE GLYCOL 3350, 17 GM/ POWD.PACK GT SCH ×2 (09:00→21:00)
[2021-03-16] MEDS: LACTULOSE 20 GM/30 ML UDC GT SCH (09:00)
[2021-03-16 11:34] VITALS: BP_SYST 132
[2021-03-16 15:24] VITALS: BP_SYST 132
[2021-03-16] MEDS: predniSONE 5 MG TABLET GT SCH (16:35)
[2021-03-16 20:45] VITALS: BP_SYST 124
[2021-03-16] MEDS: FAMOTIDINE 20 MG TABLET GT SCH (21:08)
[2021-03-16] MEDS: MONTELUKAST 10 MG TABLET GT SCH (21:11)
[2021-03-16] MEDS: DILTIAZEM HCL 30 MG TABLET PO SCH (21:11)
[2021-03-17 01:21] VITALS: BP_SYST 108
[2021-03-17] MEDS: GLYCOPYRROLATE 1 MG TABLET GT SCH ×3 (06:21→17:45)
[2021-03-17] MEDS: D5/0.45 NS 1,000 ML IV SCH ×2 (06:22→21:59)
[2021-03-17] MEDS: COLISTIMETHATE SODIUM 150 MG VIAL INH SCH (07:34)
[2021-03-17] MEDS: BUDESONIDE 0.5 MG/2 ML AMPUL.NEB INH SCH (07:34)
[2021-03-17] MEDS: IPRATROPIUM/ALBUTEROL SULFATE 3 ML AMPUL.NEB (DUONEB) INH PRN (07:34)
[2021-03-17 08:00] VITALS: BP_SYST 126
[2021-03-17] MEDS: PEG 400/HYPROMELLOSE/GLYCERIN 15 ML DROPS EACH EYE SCH ×4 (08:03→21:58)
[2021-03-17 09:06] VITALS: BP_SYST 108
[2021-03-17] MEDS: DOCUSATE SODIUM 100 MG/10 ML UDC GT SCH ×2 (09:17→21:44)
[2021-03-17] MEDS: LACTULOSE 20 GM/30 ML UDC GT SCH (09:18)
[2021-03-17] MEDS: POTASSIUM CHLORIDE 20 MEQ/PKT PACKET GT SCH (09:18)
[2021-03-17] MEDS: POLYETHYLENE GLYCOL 3350, 17 GM/ POWD.PACK GT SCH ×2 (09:18→21:44)
[2021-03-17] MEDS: ASCORBIC ACID 500 MG TABLET GT SCH ×2 (09:19→21:45)
[2021-03-17] MEDS: SIMETHICONE 80 MG TAB.CHEW GT SCH ×3 (09:19→21:44)
[2021-03-17] MEDS: MULTIVITS,CA,MINERALS/IRON/FA 1 TABLET GT SCH (09:19)
[2021-03-17] MEDS: TOPIRAMATE 100 MG TABLET(Topamax) GT SCH ×2 (09:19→21:45)
[2021-03-17] MEDS: CHOLECALCIFEROL (VITAMIN D3) 2,000 UNIT TABLET GT SCH (09:20)
[2021-03-17] MEDS: CALCIUM CARBONATE 500 MG/ TAB.CHEW GT SCH (09:20)
[2021-03-17] MEDS: DIGOXIN 0.25 MG TABLET GT SCH (09:21)
[2021-03-17] MEDS: LevETIRAcetam 500 MG/5 ML UDC ORAL LIQUID GT SCH ×2 (09:21→21:47)
[2021-03-17] MEDS: LACTOBACILLUS RHAMNOSUS GG 1 CAP CAPSULE GT SCH ×2 (09:22→21:45)
[2021-03-17 09:24] LABS: BASOPHILS % (AUTO) 0.4 % (0.0-2.0); EOSINOPHILS # (AUTO) 0.5 K/uL (0.0-0.4); EOSINOPHILS % (AUTO) 5.8 % (0.0-4.0); HEMATOCRIT 38.2 % (36-54); LYMPHOCYTES # (AUTO) 2.5 K/uL (1.0-5.5); LYMPHOCYTES % (AUTO) 30.8 % (20.5-51.5); MEAN CORPUSCULAR HEMOGLOBIN 31 pg (27-31); MEAN CORPUSCULAR HGB CONC 34 % (32-36); MEAN CORPUSCULAR VOLUME 91 fL (79.0-98.0); MONOCYTES # (AUTO) 1.1 K/uL (0.0-1.0); MONOCYTES % (AUTO) 13.2 % (1.7-9.3); NEUTROPHILS % (AUTO) 49.8 % (40.0-70.0); PLATELET COUNT (AUTO) 479 K/uL (130-430); RED BLOOD CELL COUNT(AUTO) 4.19 MIL/uL (4.2-6.2); RED CELL DISTRIBUTION WIDTH 13.1 % (9.0-15.0); WHITE BLOOD COUNT (AUTO) 8.1 K/uL (4.8-10.8)
[2021-03-17 10:08] LABS: CALCIUM 8.4 mg/dL (8.4-11.0); CREATININE 0.28 mg/dL (0.55-1.30); POTASSIUM 3.1 mmol/L (3.5-5.1)
[2021-03-17 12:10] LABS: C-REACTIVE PROTEIN QUANT 3.7 mg/dL (0-0.5)
[2021-03-17 12:30] VITALS: BP_SYST 121
[2021-03-17] MEDS ORDERED: POTASSIUM CHLORIDE 20 MEQ TAB.PRT.SR GT ONE (14:30)
[2021-03-17] MEDS: predniSONE 5 MG TABLET GT SCH (15:31)
[2021-03-17 16:00] LABS: ERYTHROCYTE SEDIMENTATION RATE 25 MM/HR (0-15)
[2021-03-17 16:43] VITALS: BP_SYST 123
[2021-03-17 21:30] VITALS: BP_SYST 147
[2021-03-17] MEDS: FAMOTIDINE 20 MG TABLET GT SCH (21:45)
[2021-03-17] MEDS: DILTIAZEM HCL 30 MG TABLET PO SCH (21:46)
[2021-03-17] MEDS: MONTELUKAST 10 MG TABLET GT SCH (22:01)
[2021-03-18] MEDS: GLYCOPYRROLATE 1 MG TABLET GT SCH ×4 (00:05→18:27)
[2021-03-18 00:29] VITALS: BP_SYST 144
[2021-03-18] MEDS: D5/0.45 NS 1,000 ML IV SCH ×2 (04:34→18:44)
[2021-03-18] MEDS: BUDESONIDE 0.5 MG/2 ML AMPUL.NEB INH SCH ×2 (07:16→19:42)
[2021-03-18 07:23] LABS: ALBUMIN 2.5 g/dL (3.4-4.8); CALCIUM 8.5 mg/dL (8.4-11.0); CREATININE 0.23 mg/dL (0.55-1.30); POTASSIUM 3.1 mmol/L (3.5-5.1); TOTAL BILIRUBIN 0.2 mg/dL (0.0-1.0)
[2021-03-18 07:31] LABS: BASOPHILS % (AUTO) 0.3 % (0.0-2.0); EOSINOPHILS # (AUTO) 0.2 K/uL (0.0-0.4); EOSINOPHILS % (AUTO) 1.5 % (0.0-4.0); HEMATOCRIT 37.9 % (36-54); HEMOGLOBIN 12.9 g/dL (14.0-18.0); LYMPHOCYTES # (AUTO) 2.4 K/uL (1.0-5.5); LYMPHOCYTES % (AUTO) 16.4 % (20.5-51.5); MEAN CORPUSCULAR HEMOGLOBIN 31 pg (27-31); MEAN CORPUSCULAR HGB CONC 34 % (32-36); MEAN CORPUSCULAR VOLUME 91 fL (79.0-98.0); MONOCYTES # (AUTO) 1.4 K/uL (0.0-1.0); MONOCYTES % (AUTO) 9.5 % (1.7-9.3); NEUTROPHILS # (AUTO) 10.8 K/uL (1.8-7.7); NEUTROPHILS % (AUTO) 72.3 % (40.0-70.0); PLATELET COUNT (AUTO) 500 K/uL (130-430); RED BLOOD CELL COUNT(AUTO) 4.17 MIL/uL (4.2-6.2); RED CELL DISTRIBUTION WIDTH 13.2 % (9.0-15.0); WHITE BLOOD COUNT (AUTO) 14.9 K/uL (4.8-10.8)
[2021-03-18 08:45] VITALS: BP_SYST 138
[2021-03-18] MEDS: PEG 400/HYPROMELLOSE/GLYCERIN 15 ML DROPS EACH EYE SCH ×3 (09:07→20:41)
[2021-03-18] MEDS: POLYETHYLENE GLYCOL 3350, 17 GM/ POWD.PACK GT SCH ×2 (09:07→20:38)
[2021-03-18] MEDS: LACTULOSE 20 GM/30 ML UDC GT SCH (09:07)
[2021-03-18] MEDS: DOCUSATE SODIUM 100 MG/10 ML UDC GT SCH ×2 (09:07→20:39)
[2021-03-18] MEDS: POTASSIUM CHLORIDE 20 MEQ/PKT PACKET GT SCH (09:09)
[2021-03-18] MEDS: LevETIRAcetam 500 MG/5 ML UDC ORAL LIQUID GT SCH ×2 (09:10→20:40)
[2021-03-18] MEDS: SCOPOLAMINE HYDROBROMIDE 1 MG PATCH .72 H (TRANSDERM-SCOP) TD SCH (09:10)
[2021-03-18] MEDS: SIMETHICONE 80 MG TAB.CHEW GT SCH ×3 (09:11→20:39)
[2021-03-18] MEDS: TOPIRAMATE 100 MG TABLET(Topamax) GT SCH ×2 (09:11→20:39)
[2021-03-18] MEDS: DIGOXIN 0.25 MG TABLET GT SCH (09:11)
[2021-03-18] MEDS: CALCIUM CARBONATE 500 MG/ TAB.CHEW GT SCH (09:11)
[2021-03-18] MEDS: CHOLECALCIFEROL (VITAMIN D3) 2,000 UNIT TABLET GT SCH (09:11)
[2021-03-18] MEDS: ASCORBIC ACID 500 MG TABLET GT SCH ×2 (09:11→20:39)
[2021-03-18] MEDS: MULTIVITS,CA,MINERALS/IRON/FA 1 TABLET GT SCH (09:11)
[2021-03-18] MEDS: LACTOBACILLUS RHAMNOSUS GG 1 CAP CAPSULE GT SCH ×2 (09:12→20:39)
[2021-03-18 11:30] VITALS: BP_SYST 117
[2021-03-18 12:08] LABS: ERYTHROCYTE SEDIMENTATION RATE 35 MM/HR (0-15)
[2021-03-18 13:31] LABS: C-REACTIVE PROTEIN QUANT 4.9 mg/dL (0-0.5)
[2021-03-18 15:45] VITALS: BP_SYST 157
[2021-03-18] MEDS: predniSONE 5 MG TABLET GT SCH (16:19)
[2021-03-18] MEDS: COLISTIMETHATE SODIUM 150 MG VIAL INH SCH (19:36)
[2021-03-18 20:00] VITALS: BP_SYST 123
[2021-03-18] MEDS: ACETAMINOPHEN 325 MG TABLET GT PRN (20:38)
[2021-03-18] MEDS: FAMOTIDINE 20 MG TABLET GT SCH (20:39)
[2021-03-18] MEDS: MONTELUKAST 10 MG TABLET GT SCH (20:39)
[2021-03-18] MEDS: DILTIAZEM HCL 30 MG TABLET PO SCH (20:40)
[2021-03-19] VITALS: BP_SYST 141
[2021-03-19] MEDS: GLYCOPYRROLATE 1 MG TABLET GT SCH ×3 (05:46→18:52)
[2021-03-19] MEDS: COLISTIMETHATE SODIUM 150 MG VIAL INH SCH ×2 (07:00→19:55)
[2021-03-19 08:01] VITALS: BP_SYST 115
[2021-03-19] MEDS: SIMETHICONE 80 MG TAB.CHEW GT SCH ×3 (08:25→20:31)
[2021-03-19] MEDS: CHOLECALCIFEROL (VITAMIN D3) 2,000 UNIT TABLET GT SCH (08:25)
[2021-03-19] MEDS: ASCORBIC ACID 500 MG TABLET GT SCH ×2 (08:25→20:32)
[2021-03-19] MEDS: BUDESONIDE 0.5 MG/2 ML AMPUL.NEB INH SCH ×2 (08:25→19:55)
[2021-03-19] MEDS: MULTIVITS,CA,MINERALS/IRON/FA 1 TABLET GT SCH (08:25)
[2021-03-19] MEDS: LACTOBACILLUS RHAMNOSUS GG 1 CAP CAPSULE GT SCH ×2 (08:26→20:31)
[2021-03-19] MEDS: DIGOXIN 0.25 MG TABLET GT SCH (08:26)
[2021-03-19] MEDS: CALCIUM CARBONATE 500 MG/ TAB.CHEW GT SCH (08:26)
[2021-03-19] MEDS: TOPIRAMATE 100 MG TABLET(Topamax) GT SCH ×2 (08:26→20:32)
[2021-03-19] MEDS: POTASSIUM CHLORIDE 20 MEQ/PKT PACKET GT SCH (08:27)
[2021-03-19] MEDS: DOCUSATE SODIUM 100 MG/10 ML UDC GT SCH ×2 (08:27→20:31)
[2021-03-19] MEDS: LevETIRAcetam 500 MG/5 ML UDC ORAL LIQUID GT SCH ×2 (08:28→20:31)
[2021-03-19] MEDS: LACTULOSE 20 GM/30 ML UDC GT SCH (08:28)
[2021-03-19] MEDS: PEG 400/HYPROMELLOSE/GLYCERIN 15 ML DROPS EACH EYE SCH ×4 (08:29→20:36)
[2021-03-19] MEDS: POLYETHYLENE GLYCOL 3350, 17 GM/ POWD.PACK GT SCH ×2 (08:29→20:32)
[2021-03-19 11:38] VITALS: BP_SYST 103
[2021-03-19] MEDS: D5/0.45 NS 1,000 ML IV SCH (11:56)
[2021-03-19 15:42] LABS: CALCIUM 9.5 mg/dL (8.4-11.0); CREATININE 0.42 mg/dL (0.55-1.30); POTASSIUM 3.6 mmol/L (3.5-5.1)
[2021-03-19 15:47] LABS: TOTAL BILIRUBIN 0.3 mg/dL (0.0-1.0)
[2021-03-19 16:06] VITALS: BP_SYST 147
[2021-03-19] MEDS: predniSONE 5 MG TABLET GT SCH (16:44)
[2021-03-19] MEDS: FAMOTIDINE 20 MG TABLET GT SCH (20:32)
[2021-03-19] MEDS: MONTELUKAST 10 MG TABLET GT SCH (20:32)
[2021-03-19] MEDS: DILTIAZEM HCL 30 MG TABLET PO SCH (20:36)
[2021-03-20 00:24] VITALS: BP_SYST 138
[2021-03-20] MEDS: GLYCOPYRROLATE 1 MG TABLET GT SCH ×3 (00:55→13:30)
[2021-03-20] MEDS: D5/0.45 NS 1,000 ML IV SCH ×2 (05:45→21:40)
[2021-03-20 08:00] VITALS: BP_SYST 132
[2021-03-20] MEDS: BUDESONIDE 0.5 MG/2 ML AMPUL.NEB INH SCH (08:25)
[2021-03-20] MEDS: POLYETHYLENE GLYCOL 3350, 17 GM/ POWD.PACK GT SCH ×2 (08:32→23:14)
[2021-03-20] MEDS: LevETIRAcetam 500 MG/5 ML UDC ORAL LIQUID GT SCH ×2 (08:32→23:14)
[2021-03-20] MEDS: PEG 400/HYPROMELLOSE/GLYCERIN 15 ML DROPS EACH EYE SCH ×3 (08:32→23:14)
[2021-03-20] MEDS: CALCIUM CARBONATE 500 MG/ TAB.CHEW GT SCH (08:33)
[2021-03-20] MEDS: POTASSIUM CHLORIDE 20 MEQ/PKT PACKET GT SCH (08:33)
[2021-03-20 08:34] VITALS: BP_SYST 138
[2021-03-20] MEDS: TOPIRAMATE 100 MG TABLET(Topamax) GT SCH ×2 (08:34→23:14)
[2021-03-20] MEDS: LACTULOSE 20 GM/30 ML UDC GT SCH (08:34)
[2021-03-20] MEDS: DIGOXIN 0.25 MG TABLET GT SCH (08:34)
[2021-03-20] MEDS: LACTOBACILLUS RHAMNOSUS GG 1 CAP CAPSULE GT SCH ×2 (08:34→23:11)
[2021-03-20] MEDS: SIMETHICONE 80 MG TAB.CHEW GT SCH ×2 (08:35→23:14)
[2021-03-20] MEDS: CHOLECALCIFEROL (VITAMIN D3) 2,000 UNIT TABLET GT SCH (08:35)
[2021-03-20] MEDS: ASCORBIC ACID 500 MG TABLET GT SCH ×2 (08:35→23:14)
[2021-03-20] MEDS: MULTIVITS,CA,MINERALS/IRON/FA 1 TABLET GT SCH (08:35)
[2021-03-20] MEDS: DOCUSATE SODIUM 100 MG/10 ML UDC GT SCH ×2 (08:40→23:14)
[2021-03-20 12:30] VITALS: BP_SYST 130
[2021-03-20 13:12] VITALS: BP_SYST 130
[2021-03-20] MEDS: FAMOTIDINE 20 MG TABLET GT SCH (23:14)
[2021-03-20] MEDS: MONTELUKAST 10 MG TABLET GT SCH (23:14)
[2021-03-20] MEDS: DILTIAZEM HCL 30 MG TABLET PO SCH (23:14)
[2021-03-21] MEDS: ACETAMINOPHEN 325 MG TABLET GT PRN ×3 (00:09→20:12)
[2021-03-21] MEDS: GLYCOPYRROLATE 1 MG TABLET GT SCH ×4 (00:10→17:12)
[2021-03-21 00:30] VITALS: BP_SYST 114
[2021-03-21] MEDS: BUDESONIDE 0.5 MG/2 ML AMPUL.NEB INH SCH ×2 (07:38→19:32)
[2021-03-21] MEDS: LACTULOSE 20 GM/30 ML UDC GT SCH (09:42)
[2021-03-21] MEDS: DOCUSATE SODIUM 100 MG/10 ML UDC GT SCH ×2 (09:42→20:12)
[2021-03-21] MEDS: CALCIUM CARBONATE 500 MG/ TAB.CHEW GT SCH (09:42)
[2021-03-21] MEDS: PEG 400/HYPROMELLOSE/GLYCERIN 15 ML DROPS EACH EYE SCH ×4 (09:42→20:15)
[2021-03-21] MEDS: LACTOBACILLUS RHAMNOSUS GG 1 CAP CAPSULE GT SCH ×2 (09:43→20:14)
[2021-03-21] MEDS: TOPIRAMATE 100 MG TABLET(Topamax) GT SCH ×2 (09:43→20:14)
[2021-03-21] MEDS: MULTIVITS,CA,MINERALS/IRON/FA 1 TABLET GT SCH (09:43)
[2021-03-21] MEDS: ASCORBIC ACID 500 MG TABLET GT SCH ×2 (09:43→20:14)
[2021-03-21] MEDS: CHOLECALCIFEROL (VITAMIN D3) 2,000 UNIT TABLET GT SCH (09:43)
[2021-03-21] MEDS: DIGOXIN 0.25 MG TABLET GT SCH (09:43)
[2021-03-21] MEDS: SIMETHICONE 80 MG TAB.CHEW GT SCH ×3 (09:44→20:12)
[2021-03-21] MEDS: POLYETHYLENE GLYCOL 3350, 17 GM/ POWD.PACK GT SCH ×2 (09:44→20:12)
[2021-03-21] MEDS: POTASSIUM CHLORIDE 20 MEQ/PKT PACKET GT SCH (09:44)
[2021-03-21] MEDS: LevETIRAcetam 500 MG/5 ML UDC ORAL LIQUID GT SCH ×2 (10:01→20:17)
[2021-03-21] MEDS: SCOPOLAMINE HYDROBROMIDE 1 MG PATCH .72 H (TRANSDERM-SCOP) TD SCH (10:01)
[2021-03-21] MEDS: D5/0.45 NS 1,000 ML IV SCH ×2 (10:39→17:22)
[2021-03-21 12:15] VITALS: BP_SYST 101
[2021-03-21 16:12] VITALS: BP_SYST 141
[2021-03-21] MEDS: predniSONE 5 MG TABLET GT SCH (17:13)
[2021-03-21 20:00] VITALS: BP_SYST 142
[2021-03-21] MEDS: MONTELUKAST 10 MG TABLET GT SCH (20:12)
[2021-03-21] MEDS: DILTIAZEM HCL 30 MG TABLET PO SCH (20:13)
[2021-03-21] MEDS: FAMOTIDINE 20 MG TABLET GT SCH (20:14)
[2021-03-22] MEDS: ACETAMINOPHEN 325 MG TABLET GT PRN ×4 (00:14→20:18)
[2021-03-22] MEDS: GLYCOPYRROLATE 1 MG TABLET GT SCH ×4 (00:15→17:08)
[2021-03-22 01:17] VITALS: BP_SYST 125
[2021-03-22] MEDS: BUDESONIDE 0.5 MG/2 ML AMPUL.NEB INH SCH (07:34)
[2021-03-22 08:00] VITALS: BP_SYST 127
[2021-03-22] MEDS: LevETIRAcetam 500 MG/5 ML UDC ORAL LIQUID GT SCH ×2 (09:49→20:17)
[2021-03-22] MEDS: DOCUSATE SODIUM 100 MG/10 ML UDC GT SCH ×2 (09:49→20:18)
[2021-03-22] MEDS: PEG 400/HYPROMELLOSE/GLYCERIN 15 ML DROPS EACH EYE SCH ×4 (09:49→20:14)
[2021-03-22] MEDS: PHENobarbital 30 MG TABLET PO SCH (09:50)
[2021-03-22] MEDS: LACTULOSE 20 GM/30 ML UDC GT SCH (09:50)
[2021-03-22] MEDS: POLYETHYLENE GLYCOL 3350, 17 GM/ POWD.PACK GT SCH ×2 (09:50→20:17)
[2021-03-22] MEDS: POTASSIUM CHLORIDE 20 MEQ/PKT PACKET GT SCH (09:51)
[2021-03-22] MEDS: DIGOXIN 0.25 MG TABLET GT SCH (09:51)
[2021-03-22] MEDS: TOPIRAMATE 100 MG TABLET(Topamax) GT SCH ×2 (09:51→20:18)
[2021-03-22] MEDS: LACTOBACILLUS RHAMNOSUS GG 1 CAP CAPSULE GT SCH ×2 (09:51→20:19)
[2021-03-22] MEDS: SIMETHICONE 80 MG TAB.CHEW GT SCH ×3 (09:52→20:19)
[2021-03-22] MEDS: ASCORBIC ACID 500 MG TABLET GT SCH ×2 (09:52→20:19)
[2021-03-22] MEDS: MULTIVITS,CA,MINERALS/IRON/FA 1 TABLET GT SCH (09:52)
[2021-03-22] MEDS: CALCIUM CARBONATE 500 MG/ TAB.CHEW GT SCH (09:52)
[2021-03-22] MEDS: CHOLECALCIFEROL (VITAMIN D3) 2,000 UNIT TABLET GT SCH (09:52)
[2021-03-22] MEDS: D5/0.45 NS 1,000 ML IV SCH (09:59)
[2021-03-22 12:20] VITALS: BP_SYST 115
[2021-03-22 16:06] VITALS: BP_SYST 116
[2021-03-22] MEDS: predniSONE 5 MG TABLET GT SCH (16:25)
[2021-03-22 19:05] LABS: BASOPHILS % (AUTO) 0.2 % (0.0-2.0); EOSINOPHILS # (AUTO) 0.2 K/uL (0.0-0.4); HEMATOCRIT 39.9 % (36-54); HEMOGLOBIN 13.5 g/dL (14.0-18.0); LYMPHOCYTES # (AUTO) 1.8 K/uL (1.0-5.5); LYMPHOCYTES % (AUTO) 9.8 % (20.5-51.5); MEAN CORPUSCULAR HEMOGLOBIN 31 pg (27-31); MEAN CORPUSCULAR HGB CONC 34 % (32-36); MEAN CORPUSCULAR VOLUME 92 fL (79.0-98.0); MONOCYTES # (AUTO) 1.9 K/uL (0.0-1.0); MONOCYTES % (AUTO) 10.4 % (1.7-9.3); NEUTROPHILS # (AUTO) 14.7 K/uL (1.8-7.7); NEUTROPHILS % (AUTO) 78.6 % (40.0-70.0); PLATELET COUNT (AUTO) 436 K/uL (130-430); RED BLOOD CELL COUNT(AUTO) 4.32 MIL/uL (4.2-6.2); RED CELL DISTRIBUTION WIDTH 13.3 % (9.0-15.0); WHITE BLOOD COUNT (AUTO) 18.7 K/uL (4.8-10.8)
[2021-03-22 19:09] LABS: ALBUMIN 2.9 g/dL (3.4-4.8); CALCIUM 9.2 mg/dL (8.4-11.0); CREATININE 0.34 mg/dL (0.55-1.30); POTASSIUM 3.6 mmol/L (3.5-5.1); TOTAL BILIRUBIN 0.5 mg/dL (0.0-1.0)
[2021-03-22 20:00] VITALS: BP_SYST 120
[2021-03-22] MEDS: FAMOTIDINE 20 MG TABLET GT SCH (20:17)
[2021-03-22] MEDS: MONTELUKAST 10 MG TABLET GT SCH (20:18)
[2021-03-22] MEDS: DILTIAZEM HCL 30 MG TABLET PO SCH (20:19)
[2021-03-23] MEDS: GLYCOPYRROLATE 1 MG TABLET GT SCH ×5 (00:13→23:43)
[2021-03-23 00:55] VITALS: BP_SYST 143
[2021-03-23] MEDS: BUDESONIDE 0.5 MG/2 ML AMPUL.NEB INH SCH ×3 (01:29→19:34)
[2021-03-23] MEDS: D5/0.45 NS 1,000 ML IV SCH ×2 (05:38→20:14)
[2021-03-23] MEDS: PEG 400/HYPROMELLOSE/GLYCERIN 15 ML DROPS EACH EYE SCH ×4 (08:15→20:14)
[2021-03-23] MEDS: POLYETHYLENE GLYCOL 3350, 17 GM/ POWD.PACK GT SCH ×2 (08:15→20:11)
[2021-03-23] MEDS: CHOLECALCIFEROL (VITAMIN D3) 2,000 UNIT TABLET GT SCH (08:16)
[2021-03-23] MEDS: LACTULOSE 20 GM/30 ML UDC GT SCH (08:16)
[2021-03-23] MEDS: DOCUSATE SODIUM 100 MG/10 ML UDC GT SCH ×2 (08:16→20:11)
[2021-03-23] MEDS: POTASSIUM CHLORIDE 20 MEQ/PKT PACKET GT SCH (08:16)
[2021-03-23] MEDS: TOPIRAMATE 100 MG TABLET(Topamax) GT SCH ×2 (08:17→20:12)
[2021-03-23] MEDS: PHENobarbital 30 MG TABLET PO SCH ×2 (08:17→20:11)
[2021-03-23] MEDS: CALCIUM CARBONATE 500 MG/ TAB.CHEW GT SCH (08:17)
[2021-03-23] MEDS: DIGOXIN 0.25 MG TABLET GT SCH (08:18)
[2021-03-23] MEDS: SIMETHICONE 80 MG TAB.CHEW GT SCH ×3 (08:18→20:11)
[2021-03-23] MEDS: MULTIVITS,CA,MINERALS/IRON/FA 1 TABLET GT SCH (08:18)
[2021-03-23] MEDS: LACTOBACILLUS RHAMNOSUS GG 1 CAP CAPSULE GT SCH ×2 (08:18→20:12)
[2021-03-23] MEDS: ASCORBIC ACID 500 MG TABLET GT SCH ×2 (08:18→20:12)
[2021-03-23] MEDS: LevETIRAcetam 500 MG/5 ML UDC ORAL LIQUID GT SCH ×2 (08:19→20:13)
[2021-03-23 08:49] VITALS: BP_SYST 115
[2021-03-23] MEDS ORDERED: NS IV SCH (12:00)
[2021-03-23] MEDS ORDERED: ERAVACYCLINE DI HYDROCHLORIDE IV SCH (12:00)
[2021-03-23 12:02] VITALS: BP_SYST 132
[2021-03-23 12:18] LABS: BASOPHILS # (AUTO) 0.1 K/uL (0.0-0.2); BASOPHILS % (AUTO) 0.6 % (0.0-2.0); EOSINOPHILS # (AUTO) 0.4 K/uL (0.0-0.4); EOSINOPHILS % (AUTO) 2.4 % (0.0-4.0); HEMATOCRIT 38.3 % (36-54); HEMOGLOBIN 12.9 g/dL (14.0-18.0); LYMPHOCYTES # (AUTO) 2.1 K/uL (1.0-5.5); LYMPHOCYTES % (AUTO) 13.3 % (20.5-51.5); MEAN CORPUSCULAR HEMOGLOBIN 31 pg (27-31); MEAN CORPUSCULAR HGB CONC 34 % (32-36); MEAN CORPUSCULAR VOLUME 93 fL (79.0-98.0); MONOCYTES # (AUTO) 1.6 K/uL (0.0-1.0); MONOCYTES % (AUTO) 10.3 % (1.7-9.3); NEUTROPHILS # (AUTO) 11.6 K/uL (1.8-7.7); NEUTROPHILS % (AUTO) 73.4 % (40.0-70.0); PLATELET COUNT (AUTO) 433 K/uL (130-430); RED BLOOD CELL COUNT(AUTO) 4.13 MIL/uL (4.2-6.2); RED CELL DISTRIBUTION WIDTH 13.4 % (9.0-15.0); WHITE BLOOD COUNT (AUTO) 15.7 K/uL (4.8-10.8)
[2021-03-23 12:34] LABS: ALBUMIN 2.6 g/dL (3.4-4.8); BILIRUBIN,DIRECT 0.1 mg/dL (0.0-0.3); TOTAL BILIRUBIN 0.3 mg/dL (0.0-1.0)
[2021-03-23] MEDS: NS IV SCH ×2 (13:32→20:16)
[2021-03-23] MEDS: ERAVACYCLINE DI HYDROCHLORIDE IV SCH ×2 (13:32→20:16)
[2021-03-23] MEDS: ACETAMINOPHEN 325 MG TABLET GT PRN ×2 (15:24→20:13)
[2021-03-23 16:10] VITALS: BP_SYST 132
[2021-03-23] MEDS: predniSONE 5 MG TABLET GT SCH (17:02)
[2021-03-23 20:00] VITALS: BP_SYST 130
[2021-03-23] MEDS: FAMOTIDINE 20 MG TABLET GT SCH (20:11)
[2021-03-23] MEDS: DILTIAZEM HCL 30 MG TABLET PO SCH (20:12)
[2021-03-23] MEDS: MONTELUKAST 10 MG TABLET GT SCH (20:12)
[2021-03-24] VITALS: BP_SYST 115
[2021-03-24] MEDS: GLYCOPYRROLATE 1 MG TABLET GT SCH ×3 (05:44→18:11)
[2021-03-24] MEDS: BUDESONIDE 0.5 MG/2 ML AMPUL.NEB INH SCH (07:15)
[2021-03-24 08:00] VITALS: BP_SYST 115
[2021-03-24] MEDS: DOCUSATE SODIUM 100 MG/10 ML UDC GT SCH ×2 (09:48→20:28)
[2021-03-24] MEDS: PEG 400/HYPROMELLOSE/GLYCERIN 15 ML DROPS EACH EYE SCH ×4 (09:48→20:30)
[2021-03-24] MEDS: CALCIUM CARBONATE 500 MG/ TAB.CHEW GT SCH (09:49)
[2021-03-24] MEDS: POTASSIUM CHLORIDE 20 MEQ/PKT PACKET GT SCH (09:49)
[2021-03-24] MEDS: POLYETHYLENE GLYCOL 3350, 17 GM/ POWD.PACK GT SCH ×2 (09:49→20:29)
[2021-03-24] MEDS: PHENobarbital 30 MG TABLET PO SCH ×2 (09:49→20:29)
[2021-03-24] MEDS: SIMETHICONE 80 MG TAB.CHEW GT SCH ×3 (09:49→20:29)
[2021-03-24] MEDS: LACTOBACILLUS RHAMNOSUS GG 1 CAP CAPSULE GT SCH ×2 (09:49→20:29)
[2021-03-24] MEDS: CHOLECALCIFEROL (VITAMIN D3) 2,000 UNIT TABLET GT SCH (09:49)
[2021-03-24] MEDS: TOPIRAMATE 100 MG TABLET(Topamax) GT SCH ×2 (09:50→20:29)
[2021-03-24] MEDS: DIGOXIN 0.25 MG TABLET GT SCH (09:50)
[2021-03-24] MEDS: ASCORBIC ACID 500 MG TABLET GT SCH ×2 (09:50→20:29)
[2021-03-24] MEDS: MULTIVITS,CA,MINERALS/IRON/FA 1 TABLET GT SCH (09:50)
[2021-03-24] MEDS: LevETIRAcetam 500 MG/5 ML UDC ORAL LIQUID GT SCH ×2 (09:50→20:28)
[2021-03-24] MEDS: SCOPOLAMINE HYDROBROMIDE 1 MG PATCH .72 H (TRANSDERM-SCOP) TD SCH (09:54)
[2021-03-24] MEDS: LACTULOSE 20 GM/30 ML UDC GT SCH (09:54)
[2021-03-24] MEDS: ERAVACYCLINE DI HYDROCHLORIDE IV SCH ×2 (09:54→20:28)
[2021-03-24] MEDS: NS IV SCH ×2 (09:54→20:28)
[2021-03-24] MEDS: IPRATROPIUM/ALBUTEROL SULFATE 3 ML AMPUL.NEB (DUONEB) INH PRN (11:13)
[2021-03-24 11:28] VITALS: BP_SYST 118
[2021-03-24] MEDS: D5/0.45 NS 1,000 ML IV SCH (13:01)
[2021-03-24] MEDS: ACETAMINOPHEN 325 MG TABLET GT PRN (15:04)
[2021-03-24 16:00] VITALS: BP_SYST 156
[2021-03-24 17:18] VITALS: BP_SYST 117
[2021-03-24] MEDS: predniSONE 5 MG TABLET GT SCH (18:10)
[2021-03-24 20:00] VITALS: BP_SYST 136
[2021-03-24] MEDS: FAMOTIDINE 20 MG TABLET GT SCH (20:29)
[2021-03-24] MEDS: MONTELUKAST 10 MG TABLET GT SCH (20:29)
[2021-03-24] MEDS: DILTIAZEM HCL 30 MG TABLET PO SCH (20:30)
[2021-03-25 00:32] VITALS: BP_SYST 130
[2021-03-25] MEDS: GLYCOPYRROLATE 1 MG TABLET GT SCH ×4 (01:15→19:03)
[2021-03-25] MEDS: ACETAMINOPHEN 325 MG TABLET GT PRN ×3 (01:15→21:42)
[2021-03-25] MEDS: D5/0.45 NS 1,000 ML IV SCH ×2 (01:22→15:46)
[2021-03-25 07:02] LABS: BASOPHILS # (AUTO) 0.1 K/uL (0.0-0.2); BASOPHILS % (AUTO) 0.5 % (0.0-2.0); EOSINOPHILS # (AUTO) 0.3 K/uL (0.0-0.4); EOSINOPHILS % (AUTO) 2.7 % (0.0-4.0); HEMATOCRIT 34.4 % (36-54); HEMOGLOBIN 11.7 g/dL (14.0-18.0); LYMPHOCYTES # (AUTO) 2.1 K/uL (1.0-5.5); LYMPHOCYTES % (AUTO) 16.9 % (20.5-51.5); MEAN CORPUSCULAR HEMOGLOBIN 31 pg (27-31); MEAN CORPUSCULAR HGB CONC 34 % (32-36); MEAN CORPUSCULAR VOLUME 91 fL (79.0-98.0); MONOCYTES # (AUTO) 1.3 K/uL (0.0-1.0); MONOCYTES % (AUTO) 10.2 % (1.7-9.3); NEUTROPHILS # (AUTO) 8.7 K/uL (1.8-7.7); NEUTROPHILS % (AUTO) 69.7 % (40.0-70.0); PLATELET COUNT (AUTO) 393 K/uL (130-430); RED BLOOD CELL COUNT(AUTO) 3.76 MIL/uL (4.2-6.2); RED CELL DISTRIBUTION WIDTH 13.3 % (9.0-15.0); WHITE BLOOD COUNT (AUTO) 12.5 K/uL (4.8-10.8)
[2021-03-25 07:38] LABS: ALBUMIN 2.4 g/dL (3.4-4.8); CALCIUM 8.3 mg/dL (8.4-11.0); CREATININE 0.25 mg/dL (0.55-1.30); TOTAL BILIRUBIN 0.3 mg/dL (0.0-1.0)
[2021-03-25] MEDS: BUDESONIDE 0.5 MG/2 ML AMPUL.NEB INH SCH ×2 (07:45→19:03)
[2021-03-25 09:23] LABS: POTASSIUM 2.9 mmol/L (3.5-5.1)
[2021-03-25] MEDS: NS IV SCH ×2 (10:06→21:39)
[2021-03-25] MEDS: CALCIUM CARBONATE 500 MG/ TAB.CHEW GT SCH (10:06)
[2021-03-25] MEDS: ERAVACYCLINE DI HYDROCHLORIDE IV SCH ×2 (10:06→21:39)
[2021-03-25] MEDS: CHOLECALCIFEROL (VITAMIN D3) 2,000 UNIT TABLET GT SCH (10:07)
[2021-03-25] MEDS: TOPIRAMATE 100 MG TABLET(Topamax) GT SCH ×2 (10:07→21:35)
[2021-03-25] MEDS: PHENobarbital 30 MG TABLET PO SCH ×2 (10:08→21:30)
[2021-03-25] MEDS: LACTOBACILLUS RHAMNOSUS GG 1 CAP CAPSULE GT SCH ×2 (10:10→21:30)
[2021-03-25] MEDS: POTASSIUM CHLORIDE 20 MEQ/PKT PACKET GT SCH (10:10)
[2021-03-25] MEDS: SIMETHICONE 80 MG TAB.CHEW GT SCH ×3 (10:10→21:36)
[2021-03-25] MEDS: MULTIVITS,CA,MINERALS/IRON/FA 1 TABLET GT SCH (10:10)
[2021-03-25] MEDS: POLYETHYLENE GLYCOL 3350, 17 GM/ POWD.PACK GT SCH ×2 (10:10→21:29)
[2021-03-25] MEDS: LACTULOSE 20 GM/30 ML UDC GT SCH (10:11)
[2021-03-25] MEDS: ASCORBIC ACID 500 MG TABLET GT SCH ×2 (10:11→21:30)
[2021-03-25] MEDS: PEG 400/HYPROMELLOSE/GLYCERIN 15 ML DROPS EACH EYE SCH ×4 (10:11→21:00)
[2021-03-25] MEDS: DOCUSATE SODIUM 100 MG/10 ML UDC GT SCH ×2 (10:11→21:29)
[2021-03-25] MEDS: DIGOXIN 0.25 MG TABLET GT SCH (10:12)
[2021-03-25] MEDS: LevETIRAcetam 500 MG/5 ML UDC ORAL LIQUID GT SCH ×2 (10:12→21:37)
[2021-03-25 11:30] VITALS: BP_SYST 130
[2021-03-25] MEDS ORDERED: POTASSIUM CHLORIDE 40 MEQ, LIDOCAINE JECT 2% PF 100 MG 50 MG in NS 250 ML IV ONE (12:00)
[2021-03-25 12:19] LABS: C-REACTIVE PROTEIN QUANT 7.7 mg/dL (0-0.5)
[2021-03-25 12:22] LABS: ERYTHROCYTE SEDIMENTATION RATE 48 MM/HR (0-15)
[2021-03-25 15:37] VITALS: BP_SYST 135
[2021-03-25] MEDS: predniSONE 5 MG TABLET GT SCH (17:00)
[2021-03-25] MEDS: MONTELUKAST 10 MG TABLET GT SCH (21:35)
[2021-03-25] MEDS: DILTIAZEM HCL 30 MG TABLET PO SCH (21:35)
[2021-03-25] MEDS: FAMOTIDINE 20 MG TABLET GT SCH (21:36)
[2021-03-26 00:05] VITALS: BP_SYST 112
[2021-03-26] MEDS ORDERED: ACETAMINOPHEN 650 MG SUPP.RECT RC PRN (00:15)
[2021-03-26] MEDS ORDERED: COMMUNICATION ORDER XX ONE (00:15)
[2021-03-26] MEDS: D5/0.45 NS 1,000 ML IV SCH ×2 (05:03→20:41)
[2021-03-26 06:58] VITALS: BP_SYST 112
[2021-03-26] MEDS: GLYCOPYRROLATE 1 MG TABLET GT SCH ×5 (07:03→23:43)
[2021-03-26] MEDS: BUDESONIDE 0.5 MG/2 ML AMPUL.NEB INH SCH ×2 (07:30→19:12)
[2021-03-26 08:00] VITALS: BP_SYST 138
[2021-03-26] MEDS: LACTOBACILLUS RHAMNOSUS GG 1 CAP CAPSULE GT SCH ×2 (08:18→20:42)
[2021-03-26] MEDS: CHOLECALCIFEROL (VITAMIN D3) 2,000 UNIT TABLET GT SCH (08:18)
[2021-03-26] MEDS: POTASSIUM CHLORIDE 20 MEQ/PKT PACKET GT SCH (08:18)
[2021-03-26] MEDS: ASCORBIC ACID 500 MG TABLET GT SCH ×2 (08:19→20:42)
[2021-03-26] MEDS: CALCIUM CARBONATE 500 MG/ TAB.CHEW GT SCH (08:19)
[2021-03-26] MEDS: SIMETHICONE 80 MG TAB.CHEW GT SCH ×3 (08:19→20:42)
[2021-03-26] MEDS: DIGOXIN 0.25 MG TABLET GT SCH (08:20)
[2021-03-26] MEDS: TOPIRAMATE 100 MG TABLET(Topamax) GT SCH ×2 (08:20→20:42)
[2021-03-26] MEDS: MULTIVITS,CA,MINERALS/IRON/FA 1 TABLET GT SCH (08:20)
[2021-03-26] MEDS: PEG 400/HYPROMELLOSE/GLYCERIN 15 ML DROPS EACH EYE SCH ×4 (08:21→20:45)
[2021-03-26] MEDS: PHENobarbital 30 MG TABLET PO SCH ×2 (08:21→20:43)
[2021-03-26] MEDS: LevETIRAcetam 500 MG/5 ML UDC ORAL LIQUID GT SCH ×2 (08:22→20:42)
[2021-03-26] MEDS: NS IV SCH ×2 (08:38→20:45)
[2021-03-26] MEDS: ERAVACYCLINE DI HYDROCHLORIDE IV SCH ×2 (08:38→20:45)
[2021-03-26] MEDS: LACTULOSE 20 GM/30 ML UDC GT SCH (09:00)
[2021-03-26] MEDS: POLYETHYLENE GLYCOL 3350, 17 GM/ POWD.PACK GT SCH ×2 (09:00→20:46)
[2021-03-26] MEDS: DOCUSATE SODIUM 100 MG/10 ML UDC GT SCH ×2 (09:00→20:46)
[2021-03-26 11:29] VITALS: BP_SYST 144
[2021-03-26] MEDS: METOCLOPRAMIDE HCL 10 MG/2 ML VIAL IVP SCH ×3 (12:21→23:43)
[2021-03-26] MEDS: AMIKACIN SULFATE 1,000 MG in NS 250 ML IV SCH (12:22)
[2021-03-26 15:27] VITALS: BP_SYST 122
[2021-03-26] MEDS: predniSONE 5 MG TABLET GT SCH (18:20)
[2021-03-26 20:00] VITALS: BP_SYST 155
[2021-03-26] MEDS: FAMOTIDINE 20 MG TABLET GT SCH (20:42)
[2021-03-26] MEDS: MONTELUKAST 10 MG TABLET GT SCH (20:42)
[2021-03-26] MEDS: DILTIAZEM HCL 30 MG TABLET PO SCH (20:43)
[2021-03-27 01:23] VITALS: BP_SYST 158
[2021-03-27] MEDS: METOCLOPRAMIDE HCL 10 MG/2 ML VIAL IVP SCH ×4 (06:04→23:31)
[2021-03-27] MEDS: GLYCOPYRROLATE 1 MG TABLET GT SCH ×4 (06:04→23:32)
[2021-03-27] MEDS: BUDESONIDE 0.5 MG/2 ML AMPUL.NEB INH SCH (07:26)
[2021-03-27 08:00] VITALS: BP_SYST 121
[2021-03-27] MEDS: POLYETHYLENE GLYCOL 3350, 17 GM/ POWD.PACK GT SCH ×2 (09:00→21:00)
[2021-03-27] MEDS: LACTULOSE 20 GM/30 ML UDC GT SCH (09:00)
[2021-03-27] MEDS: DOCUSATE SODIUM 100 MG/10 ML UDC GT SCH ×2 (09:00→21:00)
[2021-03-27] MEDS: POTASSIUM CHLORIDE 20 MEQ/PKT PACKET GT SCH (09:24)
[2021-03-27] MEDS: LACTOBACILLUS RHAMNOSUS GG 1 CAP CAPSULE GT SCH ×2 (09:24→22:09)
[2021-03-27] MEDS: LevETIRAcetam 500 MG/5 ML UDC ORAL LIQUID GT SCH ×2 (09:24→22:08)
[2021-03-27] MEDS: CALCIUM CARBONATE 500 MG/ TAB.CHEW GT SCH (09:24)
[2021-03-27] MEDS: SIMETHICONE 80 MG TAB.CHEW GT SCH ×3 (09:25→22:08)
[2021-03-27] MEDS: CHOLECALCIFEROL (VITAMIN D3) 2,000 UNIT TABLET GT SCH (09:25)
[2021-03-27] MEDS: TOPIRAMATE 100 MG TABLET(Topamax) GT SCH ×2 (09:25→22:09)
[2021-03-27] MEDS: PHENobarbital 30 MG TABLET PO SCH ×2 (09:25→22:08)
[2021-03-27] MEDS: ASCORBIC ACID 500 MG TABLET GT SCH ×2 (09:26→22:09)
[2021-03-27] MEDS: DIGOXIN 0.25 MG TABLET GT SCH (09:26)
[2021-03-27] MEDS: SCOPOLAMINE HYDROBROMIDE 1 MG PATCH .72 H (TRANSDERM-SCOP) TD SCH (09:26)
[2021-03-27] MEDS: PEG 400/HYPROMELLOSE/GLYCERIN 15 ML DROPS EACH EYE SCH ×4 (09:28→21:00)
[2021-03-27] MEDS: MULTIVITS,CA,MINERALS/IRON/FA 1 TABLET GT SCH (09:28)
[2021-03-27] MEDS: D5/0.45 NS 1,000 ML IV SCH ×2 (09:29→23:57)
[2021-03-27] MEDS: ERAVACYCLINE DI HYDROCHLORIDE IV SCH ×2 (09:46→22:13)
[2021-03-27] MEDS: NS IV SCH ×2 (09:46→22:13)
[2021-03-27 10:56] LABS: BASOPHILS # (AUTO) 0.1 K/uL (0.0-0.2); BASOPHILS % (AUTO) 0.7 % (0.0-2.0); EOSINOPHILS # (AUTO) 0.2 K/uL (0.0-0.4); EOSINOPHILS % (AUTO) 0.9 % (0.0-4.0); HEMATOCRIT 35.5 % (36-54); HEMOGLOBIN 11.9 g/dL (14.0-18.0); LYMPHOCYTES % (AUTO) 9.3 % (20.5-51.5); MEAN CORPUSCULAR HEMOGLOBIN 31 pg (27-31); MEAN CORPUSCULAR HGB CONC 33 % (32-36); MEAN CORPUSCULAR VOLUME 91 fL (79.0-98.0); MONOCYTES # (AUTO) 1.8 K/uL (0.0-1.0); MONOCYTES % (AUTO) 8.3 % (1.7-9.3); NEUTROPHILS # (AUTO) 17.2 K/uL (1.8-7.7); NEUTROPHILS % (AUTO) 80.8 % (40.0-70.0); PLATELET COUNT (AUTO) 427 K/uL (130-430); WHITE BLOOD COUNT (AUTO) 21.3 K/uL (4.8-10.8)
[2021-03-27 11:07] LABS: CALCIUM 8.8 mg/dL (8.4-11.0); CREATININE 0.25 mg/dL (0.55-1.30); POTASSIUM 4.1 mmol/L (3.5-5.1)
[2021-03-27 11:26] VITALS: BP_SYST 121
[2021-03-27 11:28] LABS: ALBUMIN 2.7 g/dL (3.4-4.8); TOTAL BILIRUBIN 0.2 mg/dL (0.0-1.0)
[2021-03-27] MEDS: AMIKACIN SULFATE 1,000 MG in NS 250 ML IV SCH (12:56)
[2021-03-27 13:02] LABS: BASOPHILS # (AUTO) 0.1 K/uL (0.0-0.2); BASOPHILS % (AUTO) 0.4 % (0.0-2.0); EOSINOPHILS # (AUTO) 0.2 K/uL (0.0-0.4); EOSINOPHILS % (AUTO) 0.9 % (0.0-4.0); HEMATOCRIT 35.9 % (36-54); HEMOGLOBIN 12.3 g/dL (14.0-18.0); LYMPHOCYTES # (AUTO) 2.2 K/uL (1.0-5.5); LYMPHOCYTES % (AUTO) 12.4 % (20.5-51.5); MEAN CORPUSCULAR HEMOGLOBIN 32 pg (27-31); MEAN CORPUSCULAR HGB CONC 34 % (32-36); MEAN CORPUSCULAR VOLUME 92 fL (79.0-98.0); MONOCYTES # (AUTO) 1.6 K/uL (0.0-1.0); MONOCYTES % (AUTO) 9.3 % (1.7-9.3); NEUTROPHILS # (AUTO) 13.7 K/uL (1.8-7.7); PLATELET COUNT (AUTO) 461 K/uL (130-430); RED BLOOD CELL COUNT(AUTO) 3.89 MIL/uL (4.2-6.2); RED CELL DISTRIBUTION WIDTH 13.1 % (9.0-15.0)
[2021-03-27 13:10] LABS: WHITE BLOOD COUNT (AUTO) 17.8 K/uL (4.8-10.8)
[2021-03-27 13:14] LABS: CALCIUM 8.9 mg/dL (8.4-11.0); CREATININE 0.35 mg/dL (0.55-1.30); POTASSIUM 3.7 mmol/L (3.5-5.1)
[2021-03-27 13:20] LABS: ALBUMIN 2.6 g/dL (3.4-4.8); TOTAL BILIRUBIN 0.3 mg/dL (0.0-1.0)
[2021-03-27] MEDS: ACETAMINOPHEN 325 MG TABLET GT PRN ×2 (14:59→22:10)
[2021-03-27 16:19] VITALS: BP_SYST 106
[2021-03-27] MEDS: predniSONE 5 MG TABLET GT SCH (17:51)
[2021-03-27 20:00] VITALS: BP_SYST 113
[2021-03-27] MEDS: MONTELUKAST 10 MG TABLET GT SCH (22:08)
[2021-03-27] MEDS: FAMOTIDINE 20 MG TABLET GT SCH (22:09)
[2021-03-27] MEDS: DILTIAZEM HCL 30 MG TABLET PO SCH (22:09)
[2021-03-28 06:00] VITALS: BP_SYST 96
[2021-03-28] MEDS: METOCLOPRAMIDE HCL 10 MG/2 ML VIAL IVP SCH ×2 (06:00→11:14)
[2021-03-28] MEDS: GLYCOPYRROLATE 1 MG TABLET GT SCH ×2 (06:00→11:13)
[2021-03-28] MEDS: BUDESONIDE 0.5 MG/2 ML AMPUL.NEB INH SCH (07:22)
[2021-03-28] MEDS: DOCUSATE SODIUM 100 MG/10 ML UDC GT SCH (09:31)
[2021-03-28] MEDS: CALCIUM CARBONATE 500 MG/ TAB.CHEW GT SCH (09:32)
[2021-03-28] MEDS: LevETIRAcetam 500 MG/5 ML UDC ORAL LIQUID GT SCH (09:32)
[2021-03-28] MEDS: LACTULOSE 20 GM/30 ML UDC GT SCH (09:32)
[2021-03-28] MEDS: CHOLECALCIFEROL (VITAMIN D3) 2,000 UNIT TABLET GT SCH (09:32)
[2021-03-28] MEDS: POTASSIUM CHLORIDE 20 MEQ/PKT PACKET GT SCH (09:32)
[2021-03-28] MEDS: TOPIRAMATE 100 MG TABLET(Topamax) GT SCH (09:33)
[2021-03-28] MEDS: SIMETHICONE 80 MG TAB.CHEW GT SCH (09:33)
[2021-03-28] MEDS: LACTOBACILLUS RHAMNOSUS GG 1 CAP CAPSULE GT SCH (09:33)
[2021-03-28] MEDS: MULTIVITS,CA,MINERALS/IRON/FA 1 TABLET GT SCH (09:33)
[2021-03-28] MEDS: PHENobarbital 30 MG TABLET PO SCH (09:33)
[2021-03-28] MEDS: ASCORBIC ACID 500 MG TABLET GT SCH (09:34)
[2021-03-28] MEDS: DIGOXIN 0.25 MG TABLET GT SCH (09:34)
[2021-03-28] MEDS: BACLOFEN 10 MG TABLET GT PRN (09:34)
[2021-03-28] MEDS: PEG 400/HYPROMELLOSE/GLYCERIN 15 ML DROPS EACH EYE SCH ×2 (09:35→11:15)
[2021-03-28] MEDS: POLYETHYLENE GLYCOL 3350, 17 GM/ POWD.PACK GT SCH (09:35)
[2021-03-28] MEDS: ERAVACYCLINE DI HYDROCHLORIDE IV SCH (09:38)
[2021-03-28] MEDS: NS IV SCH (09:38)
[2021-03-28] MEDS: AMIKACIN SULFATE 1,000 MG in NS 250 ML IV SCH (11:14)
== END 2021-03-28 11:28 | DRG 871 ==
LOC: SED 02:13 → STU 05:05
PROVIDERS: ADMIT Preventive Medicine Preventive Medicine/Occupational Environmental Medicine; ATTEND Internal Medicine Hospice and Palliative Medicine
DX: A41.9 Sepsis, unspecified organism (principal); J69.0 Pneumonitis due to inhalation of food and vomit; G82.50 Quadriplegia, unspecified; J96.20 Acute and chronic respiratory failure, unspecified whether with hypoxia or hypercapnia; J15.1 Pneumonia due to Pseudomonas; G93.40 Encephalopathy, unspecified; E87.1 Hypo-osmolality and hyponatremia; N39.0 Urinary tract infection, site not specified; F73 Profound intellectual disabilities; G93.1 Anoxic brain damage, not elsewhere classified; G40.909 Epilepsy, unspecified, not intractable, without status epilepticus; R13.10 Dysphagia, unspecified; D64.9 Anemia, unspecified; D75.839 Thrombocytosis, unspecified; E88.09 Other disorders of plasma-protein metabolism, not elsewhere classified; M81.0 Age-related osteoporosis without current pathological fracture; R73.9 Hyperglycemia, unspecified; E83.51 Hypocalcemia; K31.84 Gastroparesis; E87.6 Hypokalemia; Z20.822 Contact with and (suspected) exposure to COVID-19; Z88.8 Allergy status to other drugs, medicaments and biological substances; Z79.899 Other long term (current) drug therapy; Z74.01 Bed confinement status; Z87.01 Personal history of pneumonia (recurrent); Z93.0 Tracheostomy status; Z93.1 Gastrostomy status; Z98.1 Arthrodesis status
CPT/HCPCS: 36415; 71045; 74018; 76376; 76700-TC; 80048; 80053; 80076; 80150; 81000; 82977; 83605; 83735; 83880; 84100; 84484; 85025; 85610-TC; 85651-TC; 86140; 87040-TC; 87070-TC; 87081; 87086; 87205-TC; 93005; 94640; 94760; 96365; 96366; 96368; 99291; G0378; J0122; J0278; J0456; J0692; J0770; J1956; J2185; J2543; J2765; J3370; J3480; J3490; J7040; J7050; J7060; J7512; J7626; U0003